=== PATIENT | female | born 1960 | race Caucasian/White ===

== ENCOUNTER 2020-06-08 16:19 | Emergency (ER) | payer BC, SELFPAY ==
[2020-06-08 17:02] VITALS: BP 116/86; PULSE 85; RESP 18; TEMP 36.7; O2SAT 99
--- NOTE | 2020-06-08 17:25 | ED.NAVMDI ---
HPI - Nausea/Vomiting/Diarrhea General Chief complaint: Nausea/Vomiting/Diarrhea Stated complaint: fatigue, nausea and fever Time Seen by Provider: 06/08/20 16:49 Source: patient and RN notes reviewed Mode of arrival: ambulatory Limitations: no limitations History of Present Illness HPI Narrative: Patient presents today with a 3-day history of nausea, vomiting, and diarrhea. She also reports some fatigue today. States her vomiting has improved, but she now has some dry heaves. She has not vomited today. States that it seems her diarrhea has been worsening. She had 10 episodes of diarrhea yesterday, but for so far today. She has been able to keep down water since yesterday, and has not been able to keep down a piece of dry toast today. Denies blood or mucus in her stool. Patient does have history of cyclic vomiting syndrome for which she takes a prescribed antiemetic as needed. Her last dose was yesterday, but states it sedates her too much and she did not take any today. MD elicited complaint: nausea, vomiting and diarrhea Related Data Home Medications Medication Instructions Recorded Confirmed aspirin [Adult Low Dose Aspirin] 81 mg PO DAILY 01/27/19 06/08/20 citalopram 20 mg PO DAILY 01/27/19 06/08/20 thyroid (pork) [[place] Thyroid] 60 mg PO DAILY 06/08/20 06/08/20 Allergies Allergy/AdvReac Type Severity Reaction Status Date / Time atorvastatin Allergy Unknown arthralgias Verified 06/08/20 17:11 Penicillins Allergy Unknown Hives Verified 06/08/20 17:11 pitavastatin [Livalo] Allergy Unknown confusion Verified 06/08/20 17:11 simvastatin Allergy Unknown Unknown Verified 06/08/20 17:11 Ozlawxw-Vby-Weo Reductase Allergy Unknown Unresponsiv Verified 06/08/20 17:11 Inhibitor e Honey Bee Allergy Mild Unknown Uncoded 06/08/20 17:11 Review of Systems Review of Systems: Narrative: CONSTITUTIONAL: Denies body aches, fever, chills, or sweats.+ Fatigue EYES: Denies visual changes, redness, or discharge. ENT: Denies rhinorrhea, congestion, sore throat, or otalgia. CARDIOVASCULAR: Denies chest pain, palpitations, or edema. RESPIRATORY: Denies cough or dyspnea. GASTROINTESTINAL: Denies abdominal pain. + Nausea, vomiting, diarrhea GENITOURINARY: Denies dysuria or hematuria. SKIN: Denies rash, itching, or wounds. MUSCULOSKELETAL: Denies back pain, joint pain, or myalgia. NEUROLOGIC: Denies headache, numbness, tingling, or weakness. PSYCH: Denies depression or anxiety. [facility] Past Medical History Medical History (Updated 06/08/20 @ 17:38 by Aminata Bowens, [facility], ) Anxiety Atherosclerosis Bilateral primary osteoarthritis of hip Cervical spondylosis Cyclic vomiting syndrome Gastroparesis GERD (gastroesophageal reflux disease) Hyperlipidemia Hypertension Hypothyroidism Major depression Migraine Surgical History Surgical History (Updated 06/08/20 @ 17:28 by Aminata Bowens, [facility], ) H/O: hysterectomy Family History Family History (System 05/12/19 @ 17:17 by Soraya Bah) Other Cerebrovascular accident Diabetes mellitus Family history of malignant neoplasm Hypertension Social History Social History (System 05/12/19 @ 17:17 by Soraya Bah) Smoking status: Never smoker Alcohol intake: current Gender identity (if verbalized by the patient): Female Comments At time of signature, I have reviewed and agree with nursing past medical, surgical, social and family history unless otherwise noted. Please see nursing chart for further information. There is no relevant family history pertinent to the presenting complaint Exam Narrative: Exam Narrative: GENERAL: Well-appearing, well-nourished, and in no acute distress. HEAD: Normocephalic, atraumatic. EYES: EOMI. No redness or drainage. Conjunctivae normal. ENT: Mucous membranes pink and moist. NECK: Normal AROM. CHEST: No respiratory distress. Clear to auscultation. HEART: Regular rate and rhythm. No murmur appreciated. Normal
== END 2020-06-08 17:21 | disposition home or self-care (01) ==
PROVIDERS: Emergency Provider Nurse Practitioner; PCP Chiropractor
DX: R11.2 Nausea with vomiting, unspecified (principal); R19.7 Diarrhea, unspecified; Z20.822 Contact with and (suspected) exposure to COVID-19; I10 Essential (primary) hypertension; E78.5 Hyperlipidemia, unspecified; E03.9 Hypothyroidism, unspecified; F32.9 Major depressive disorder, single episode, unspecified; F41.9 Anxiety disorder, unspecified; M47.812 Spondylosis without myelopathy or radiculopathy, cervical region; K31.84 Gastroparesis; I70.90 Unspecified atherosclerosis
CPT/HCPCS: 87426; 99213; C9803; G0463

== ENCOUNTER 2021-01-25 14:49 | Outpatient (CLI) | payer BC, SELFPAY | END 2021-01-25 14:50 | disposition home or self-care (01) | LOC: ANHSURGERY 14:52 | PROVIDERS: PCP Internal Medicine; Visit Provider Urology | DX: N36.42 Intrinsic sphincter deficiency (ISD) (principal) | CPT/HCPCS: 87086 ==

== ENCOUNTER 2021-01-28 00:36 | Day surgery (SDC) | payer BC, SELFPAY ==
--- NOTE | 2021-01-22 14:26 | P.HP_ITS ---
H&P: HPI History of Present Illness Date/Time: 01/22/21 14:26 LEONARD due to ISD and Urge incontinence symptoms Chief Complaint: ISD [facility] Past Medical History Medical History Anxiety Atherosclerosis Bilateral primary osteoarthritis of hip Cervical spondylosis Cholecystectomy planned Cyclic vomiting syndrome Gastroparesis GERD (gastroesophageal reflux disease) Hyperlipidemia Hypertension Hypothyroidism Major depression Migraine Psoriasis Surgical History Surgical History H/O: hysterectomy History of back surgery Family History Family History Mother Diabetes mellitus Hypertension Depression Anxiety Thyroid disorder Grandparent Hypertension Carcinoma Other Cerebrovascular accident Family history of malignant neoplasm Social History Social History Smoking status: Never smoker Alcohol intake: current Gender identity (if verbalized by the patient): Female Meds Home Medications and Allergies Home Medications Medication Instructions Recorded Confirmed Type aspirin [Adult Low Dose Aspirin] 81 mg PO DAILY 01/27/19 08/16/20 History ondansetron 8 mg PO Q4-6H PRN #20 tablet 06/08/20 08/16/20 Rx esterified estrogens 2.5 mg tablet 2.5 mg PO DAILY 08/16/20 08/16/20 History levothyroxine 100 mcg tablet 100 mcg PO DAILY #90 tablet 12/27/20 Rx citalopram 20 mg tablet 20 mg PO DAILY #30 tablet 12/29/20 Rx Allergies Allergy/AdvReac Type Severity Reaction Status Date / Time atorvastatin Allergy Unknown arthralgias Verified 06/08/20 17:11 Penicillins Allergy Unknown Hives Verified 06/08/20 17:11 pitavastatin [Livalo] Allergy Unknown confusion Verified 06/08/20 17:11 simvastatin Allergy Unknown Unknown Verified 06/08/20 17:11 Gbovckf-LFK-UjC Reductase Allergy Unknown Unresponsiv Verified 06/08/20 17:11 Inhibitor e [Jzdppoc-Hjm-Did Reductase Inhibitor] Honey Bee Allergy Mild Unknown Uncoded 06/08/20 17:11 Exam Const: General: cooperative HENMT: Head: normal to inspection Eyes: General: appearance normal, both eyes and all related structures Chest: Chest palpation & inspection: normal inspection of the chest Resp: Effort & Inspection: normal respiratory effort and able to speak in complete sentences GI: Inspection: normal to inspection Back/Spine/Pelvis: Back: no CVA tenderness Skin: General skin exam: normal color and no rashes or lesions noted Neuro: General: patient oriented x3 Assessment and Plan Assessment and plan (1) Intrinsic sphincter deficiency (ISD): Code(s): N36.42 - Intrinsic sphincter deficiency (ISD) Status: Acute Assessment and Plan: bulking agent
[2021-01-25 08:14] VITALS: BMI 26.7
[2021-01-28] MEDS: LACTATED RINGERS 1,000 ML 30 ML IV CONT (06:40)
--- NOTE | 2021-01-28 06:47 | WPDANESEPPF ---
Anes - Initial Pre Proc Eval Procedure: Operation Date: 01/28/21 07:30 Proposed Procedures p Cystoscopy with Bulking Agent Bulkamid - Sim Robison MD Date/Time: 01/28/21 06:47 Surgeon: Sim Robison MD Pre Op Diagnosis: intrinsic sphincter deficiency Patient Data Age: 60 Gender: F Height: 1.6 m Weight: 68.49 kg Allergies Allergy/AdvReac Type Severity Reaction Status Date / Time atorvastatin Allergy Unknown arthralgias Verified 01/25/21 08:12 Penicillins Allergy Unknown Hives Verified 01/25/21 08:12 pitavastatin [Livalo] Allergy Unknown confusion Verified 01/25/21 08:12 simvastatin Allergy Unknown Unknown Verified 01/25/21 08:12 Klrgyux-RJP-BpZ Reductase Allergy Unknown Unresponsiv Verified 01/25/21 08:12 Inhibitor e [Pgbvxqa-Hbv-Xtn Reductase Inhibitor] Honey Bee Allergy Mild Unknown Uncoded 01/25/21 08:12 Home Medications Medication Instructions Recorded Confirmed Type ondansetron 8 mg PO Q4-6H PRN #20 tablet 06/08/20 01/25/21 Rx esterified estrogens 2.5 mg tablet 2.5 mg PO DAILY 08/16/20 01/25/21 History levothyroxine 100 mcg tablet 100 mcg PO DAILY #90 tablet 12/27/20 01/25/21 Rx citalopram 20 mg tablet 20 mg PO DAILY #30 tablet 12/29/20 01/25/21 Rx Patient hx anesthesia problems: none Family hx anesthesia problems: none Results Review: All pre-operative results and documents have been reviewed as part of the pre-operative evaluation. [facility] Past Medical History Medical History Anxiety Atherosclerosis Bilateral primary osteoarthritis of hip Cervical spondylosis Cholecystectomy planned Cyclic vomiting syndrome Gastroparesis GERD (gastroesophageal reflux disease) Hyperlipidemia Hypertension Hypothyroidism Major depression Migraine Psoriasis Surgical History Surgical History H/O: hysterectomy History of back surgery Family History Family History Mother Diabetes mellitus Hypertension Depression Anxiety Thyroid disorder Grandparent Hypertension Carcinoma Other Cerebrovascular accident Family history of malignant neoplasm Social History Social History Smoking status: Never smoker Alcohol intake: current Alcohol use details: ONCE/MONTH Substance use: never Substance use type: does not use Living arrangements: alone Gender identity (if verbalized by the patient): Female Spiritual care concerns: No Anes - Eval Final PreProcedure Day of Procedure 01/28/21 06:47 Patient weight: overweight Heart: regular rate and rhythm Lungs: clear to auscultation Airway: Mallampati scale class II Neurological: alert and oriented Last oral intake: >/= 8 hours ASA classification: III Emergent: no Anesthetic plan: proceed Anesthesia type and monitoring: general and standard monitoring Results Review: All pre-operative results and documents have been reviewed as part of the pre-operative evaluation. Informed Consent: The patient's anesthetic plan and its attendant risks and benefits were discussed with the patient/family/POA. Questions were solicited and answers provided to the satisfaction of the patient/family/POA.
[2021-01-28 06:55] VITALS: BP 142/79; PULSE 63; RESP 18; TEMP 36.4; O2SAT 98
--- NOTE | 2021-01-28 07:18 | WPDHPUPDATE1 ---
History and Physical Update Update Date/Time: 01/28/21 07:18 History and Physical has been reviewed, including an updated exam of the patient. There are NO changes in the patient's condition. Risks, benefits, and alternatives have been discussed and questions answered. Patient agrees to proceed with procedure.
[2021-01-28] MEDS: ceFAZolin 2 GM/D5W 50 ML 2 GM/50 ML BAG IVPB (07:29)
--- NOTE | 2021-01-28 07:49 | W.PM.PROC2 ---
Procedure Note - Detailed Date of Procedure 01/28/21 Pre-op Diagnosis intrinsic sphincter deficiency Post-op Diagnosis same Procedure Performed Cystoscopy with suburethral injection of implant material [id number] Surgeon Sim Robison MD Anesthesia MAC Indications This is a patient with stress urinary incontinence due to intrinsic sphincter deficiency. They desires surgical correction. They understand the risk of bleeding, and infection, lack of efficacy, need for repeat procedures, obstructive voiding requiring catheterization. They agreed to proceed. She is not a candidate for urethral sling due to minimal urethral mobility Findings Open urethra consistent with intrinsic sphincter deficiency Description of Procedure The patient was correctly identified and informed consent was obtained. They were brought to the operating room. They were given MAC anesthesia. They were placed in the dorsal lithotomy position. They were prepped and draped in a sterile fashion. A time-out performed. Cystoscopy revealed no tumors in the bladder and an open urethra consistent with intrinsic sphincter deficiency. She had very scarred urethral tissues. They were not very vascular. I injected the bulking agent circumferentially around the urethra creating pillows to collapse the urethra There was good bulking effect. They were awakened and transferred to the PACU in stable condition. Implants Urethral bulking agent Estimated Blood Loss 1 Drains No Packing No Pathology none sent Complications No immediate complications Condition stable Disposition PACU
[2021-01-28 07:54] VITALS: BP 90/48; PULSE 63; RESP 12; O2SAT 95
[2021-01-28 08:10] VITALS: BP 107/54; PULSE 61; RESP 12; O2SAT 97
[2021-01-28 08:40] VITALS: BP 126/72; PULSE 57; RESP 12
== END 2021-01-28 08:57 | disposition home or self-care (01) ==
PROVIDERS: PCP Internal Medicine; Visit Provider Urology
PROC: 3E0K8GC Introduction of Other Therapeutic Substance into Genitourinary Tract, Via Natural or Artificial Opening Endoscopic (ICD-10-PCS; CPT 51715; principal; 2021-01-28 07:30)
DX: N36.42 Intrinsic sphincter deficiency (ISD) (principal); N39.3 Stress incontinence (female) (male); N36.8 Other specified disorders of urethra; F41.9 Anxiety disorder, unspecified; M47.812 Spondylosis without myelopathy or radiculopathy, cervical region; R11.15 Cyclical vomiting syndrome unrelated to migraine; K21.9 Gastro-esophageal reflux disease without esophagitis; E78.5 Hyperlipidemia, unspecified; I10 Essential (primary) hypertension; E03.9 Hypothyroidism, unspecified; F32.9 Major depressive disorder, single episode, unspecified; L40.9 Psoriasis, unspecified; Z79.82 Long term (current) use of aspirin
CPT/HCPCS: 51715; A9270; J0690; J2250; J2704; J3010; J7120

== ENCOUNTER 2021-03-15 14:25 | Outpatient (CLI) | payer BC, SELFPAY ==
--- NOTE | ~2021-03-15 | XR_ITS ---
EXAMINATION: XR knee LT 3V DATE: 03/15/2021 14:49 INDICATION: Left knee pain. TECHNIQUE: 3 views of left knee were obtained. COMPARISON: None. FINDINGS: Bone alignment is normal. No fracture. There is moderate osteoarthritis of medial compartme nt and mild osteoarthritis of lateral and patellofemoral compartments. No knee joint effusion. IMPRESSION: 1. Moderate left knee osteoarthritis. Reviewed, dictated and finalized at location A. IGN [employer]CAST SPECIALIST
--- NOTE | ~2021-03-15 | XR_ITS ---
EXAMINATION: XR knee RT 3V DATE: 03/15/2021 14:49 INDICATION: Right knee pain. TECHNIQUE: 3 views of right knee were obtained. COMPARISON: None. FINDINGS: Bone alignment is normal. No fracture. There is mild osteoarthritis of medial and patellofe moral compartments. No knee joint effusion. IMPRESSION: 1. Mild right knee osteoarthritis. Reviewed, dictated and finalized at location A. BRUSH FILLER
== END 2021-03-15 14:26 | disposition home or self-care (01) ==
LOC: ANHIMG 14:32
PROVIDERS: PCP Internal Medicine; Visit Provider Nurse Practitioner
DX: M25.561 Pain in right knee (principal); M25.562 Pain in left knee; M17.0 Bilateral primary osteoarthritis of knee
CPT/HCPCS: 73562

== ENCOUNTER 2021-07-20 19:31 | Emergency (ER) | payer BC, SELFPAY ==
--- NOTE | 2021-07-20 19:36 | ED.URI ---
HPI - URI/Sore Throat General Chief Complaint: Upper Respiratory Infection Stated Complaint: sore throat cough fever congestion Time Seen by Provider: 07/20/21 19:38 Source: patient and RN notes reviewed Mode of arrival: ambulatory Limitations: no limitations History of Present Illness HPI Narrative: 61-year-old female presents with concern for 1 week history of cough, nasal congestion, nasal drainage and sinus pain. Reports chest congestion and chest tightness with coughing. She reports she has been taking jkac-koq-tvrlmbr medication without relief. Reports her symptoms worsened today and she developed a fever. MD elicited complaint: cough and nasal congestion Related Data Home Medications Medication Instructions Recorded Confirmed esterified estrogens 2.5 mg tablet 2.5 mg PO DAILY 08/16/20 07/20/21 Allergies Allergy/AdvReac Type Severity Reaction Status Date / Time atorvastatin Allergy Unknown arthralgias Verified 07/20/21 19:33 Penicillins Allergy Unknown Hives Verified 07/20/21 19:33 pitavastatin [Livalo] Allergy Unknown confusion Verified 07/20/21 19:33 simvastatin Allergy Unknown Unknown Verified 07/20/21 19:33 Outabop-MBV-FpT Reductase Allergy Unknown Unresponsiv Verified 07/20/21 19:33 Inhibitor e [Frokkiv-Brw-Fcz Reductase Inhibitor] Honey Bee Allergy Mild Unknown Uncoded 07/20/21 19:33 Review of Systems Review of Systems: CONSTITUTIONAL: Reports malaise, fever. EYES: Denies visual changes, redness, or discharge. ENT: Reports rhinorrhea, congestion, sinus pain, otalgia and sore throat. CARDIOVASCULAR: Denies chest pain, palpitations, or edema. RESPIRATORY: Reports cough. Denies dyspnea. GASTROINTESTINAL: Denies abdominal pain, nausea, vomiting, diarrhea SKIN: Denies rash or itching. MUSCULOSKELETAL: Reports myalgia. NEUROLOGIC: Denies headache. All systems reviewed & are unremarkable except as noted in HPI and below PMFSH Past Medical History Medical History (Updated 07/20/21 @ 19:46 by Stacey Morales NP) Age related osteoporosis Anxiety Atherosclerosis Bilateral primary osteoarthritis of hip Cervical spondylosis Cholecystectomy planned Cyclic vomiting syndrome Gastroparesis GERD (gastroesophageal reflux disease) Hyperlipidemia Hypertension Hypothyroidism Major depression Migraine Psoriasis Surgical History Surgical History H/O: hysterectomy History of back surgery Family History Family History Mother Diabetes mellitus Hypertension Depression Anxiety Thyroid disorder Grandparent Hypertension Carcinoma Other Cerebrovascular accident Family history of malignant neoplasm Social History Social History Smoking status: Never smoker Alcohol intake: current Alcohol use details: ONCE/MONTH Substance use: never Substance use type: does not use Gender identity (if verbalized by the patient): Female Spiritual care concerns: No Comments At time of signature, agree with nursing past medical, surgical, social and family history. There is no relevant family history pertinent to the presenting complaint Exam Narrative: GENERAL: Nontoxic-appearing and in no acute distress. HEAD: Normocephalic EYES: PERRLA, conjunctivae clear ENT: Nares clear, turbinates edematous and erythematous, sinus tenderness. Mucous membranes moist. TM pearly gaines with dull light reflex bilaterally; no tragal tenderness. Oropharynx not erythematous without lesions. Tonsils not enlarged and without exudate, no drooling, no hoarseness, no trismus, uvula midline. NECK: Supple. No lymphadenopathy CHEST: Clear to auscultation, breath sounds equal. No wheezing, rhonchi, rales, or stridor. No respiratory distress, speaks in full sentences. HEART: Regular rate and rhythm. No murmur heard. SKIN: Warm, dry, no rash. NEURO: Apple
[2021-07-20 19:37] VITALS: BP 155/83; PULSE 90; RESP 20; TEMP 38.2; O2SAT 97
== END 2021-07-20 19:50 | disposition home or self-care (01) ==
PROVIDERS: Emergency Provider Nurse Practitioner; PCP Internal Medicine
DX: J32.9 Chronic sinusitis, unspecified (principal); J40 Bronchitis, not specified as acute or chronic; M81.0 Age-related osteoporosis without current pathological fracture; I70.90 Unspecified atherosclerosis; M16.0 Bilateral primary osteoarthritis of hip; M47.812 Spondylosis without myelopathy or radiculopathy, cervical region; K31.84 Gastroparesis; K21.9 Gastro-esophageal reflux disease without esophagitis; E78.5 Hyperlipidemia, unspecified; I10 Essential (primary) hypertension; E03.9 Hypothyroidism, unspecified; L40.9 Psoriasis, unspecified; F41.9 Anxiety disorder, unspecified; F32.A Depression, unspecified
CPT/HCPCS: 99213; G0463

== ENCOUNTER 2021-08-27 14:32 | Emergency (ER) | payer BC, SELFPAY ==
--- NOTE | ~2021-08-27 | XR_ITS ---
EXAM: XR thoracic spine 3V DATE: 08/27/2021 16:18 HISTORY: KNI. MID-BACK PAIN X 3 WKS. PAIN GETTING WORSE. . COMPARISON: None available. FINDINGS: Vertebral body alignment intact. Mild thoracic scoliosis. Vertebral body heights preserved . Multilevel disc narrowing and marginal osteophytosis. No traumatic malalignment or fracture. Visual ized lung parenchyma is clear. Cholecystectomy clips. IMPRESSION: No acute fracture or traumatic malalignment detected in the thoracic spine. Reviewed, dictated and finalized at location K. IMPRESSION: No acute fracture or traumatic malalignment detected in the thoraci c spine.
[2021-08-27 14:36] VITALS: BP 152/64; PULSE 65; RESP 20; TEMP 36.7; O2SAT 98
--- NOTE | 2021-08-27 14:44 | ED.BACK ---
HPI - Back Pain/Injury General Chief Complaint: Back Pain/Injury Stated Complaint: Back pain Time Seen by Provider: 08/27/21 15:43 Source: patient and RN notes reviewed Mode of arrival: ambulatory Limitations: no limitations History of Present Illness HPI Narrative: 61-year-old female presents with concern for mid line thoracic back pain. She reports pain started at her bra line approximately 3 weeks ago. Reports is progressively gotten worse. Reports she has been to the chiropractor twice and been adjusted without relief. She reports intermittent unprovoked sharp pain. She reports the pain occasionally radiates to her right upper quadrant. She reports a history of biliary stenosis with stent placement. She reports history of gastroparesis, cholecystectomy and appendectomy. She also has a history of a cyst on her lumbar spine which she had removed surgically. She reports her gastroparesis is generally controlled with diet. She reports over the last several days she has noticed that the achiness increases after she eats. MD elicited complaint: back pain Related Data Allergies Allergy/AdvReac Type Severity Reaction Status Date / Time atorvastatin Allergy Unknown arthralgias Verified 08/27/21 14:52 Penicillins Allergy Unknown Hives Verified 08/27/21 14:52 pitavastatin [Livalo] Allergy Unknown confusion Verified 08/27/21 14:52 simvastatin Allergy Unknown Unknown Verified 08/27/21 14:52 Jgkzmbj-DTU-ZeX Reductase Allergy Unknown Unresponsiv Verified 08/27/21 14:52 Inhibitor e [Rvezjja-Hqm-Zrk Reductase Inhibitor] Honey Bee Allergy Mild Unknown Uncoded 07/20/21 19:33 Review of Systems Review of Systems: CONSTITUTIONAL: Denies malaise, chills, sweats, or fever. CARDIOVASCULAR: Denies chest pain, palpitations, or edema. RESPIRATORY: Denies cough or dyspnea. GASTROINTESTINAL: Reports back pain that radiates to the right upper quadrant of the abdomen. Denies nausea, vomiting, diarrhea, loss of bowel function GENITOURINARY: Denies dysuria, hematuria, frequency, loss of bladder function. SKIN: Denies rash or itching. MUSCULOSKELETAL: Reports midline thoracic back pain NEUROLOGIC: Denies numbness, weakness, or headache. All systems reviewed & are unremarkable except as noted in HPI and below PMFSH Past Medical History Medical History (Updated 08/27/21 @ 16:28 by Stacey Morales NP) Age related osteoporosis Anxiety Atherosclerosis Bilateral primary osteoarthritis of hip Cervical spondylosis Cholecystectomy planned Cyclic vomiting syndrome Gastroparesis GERD (gastroesophageal reflux disease) Hyperlipidemia Hypertension Hypothyroidism Major depression Migraine Psoriasis Surgical History Surgical History H/O: hysterectomy History of back surgery Family History Family History Mother Diabetes mellitus Hypertension Depression Anxiety Thyroid disorder Grandparent Hypertension Carcinoma Other Cerebrovascular accident Family history of malignant neoplasm Social History Social History Smoking status: Never smoker Alcohol intake: current Alcohol use details: ONCE/MONTH Substance use: never Substance use type: does not use Gender identity (if verbalized by the patient): Female Spiritual care concerns: No Comments At time of signature, agree with nursing past medical, surgical, social and family history. There is no relevant family history pertinent to the presenting complaint Exam Narrative: GENERAL: Well-appearing, well-nourished, and in no acute distress. HEAD: Normocephalic, atraumatic. EYES: PERRLA and EOMI. NECK: Supple. No lymphadenopathy. CHEST: Clear to auscultation. No respiratory distress. HEART: Regular rate and rhythm. Distal pulses palpable and equal, cap refill <3 seconds ABDOMEN: Soft, nontender,
[2021-08-27] MEDS: KETOROLAC (*BKC) 60 MG/2 ML VIAL IM (16:21)
--- NOTE | 2021-08-27 16:32 | ECG_ITS ---
Measurements Intervals [place] Rate: 57 P: 60 MS: 132 QRS: 67 QRSD: 96 T: 57 QT: 412 QTc: 403 Interpretive Statements SINUS RHYTHM NO PREVIOUS ECG AVAILABLE FOR COMPARISON Electronically Signed On 08-28-2021 19:17:04 CDT by Aleshia Frausto M.D.
== END 2021-08-27 16:48 | disposition home or self-care (01) ==
PROVIDERS: Emergency Provider Nurse Practitioner; PCP Internal Medicine
DX: M54.6 Pain in thoracic spine (principal); E03.9 Hypothyroidism, unspecified; I10 Essential (primary) hypertension; K21.9 Gastro-esophageal reflux disease without esophagitis; K31.84 Gastroparesis; M47.812 Spondylosis without myelopathy or radiculopathy, cervical region; M16.0 Bilateral primary osteoarthritis of hip; I70.90 Unspecified atherosclerosis; M81.0 Age-related osteoporosis without current pathological fracture; F41.9 Anxiety disorder, unspecified; F32.9 Major depressive disorder, single episode, unspecified
CPT/HCPCS: 72072; 93005; 96372; 99213; G0463; J1885

== ENCOUNTER 2021-08-31 14:41 | Emergency (ER) | payer BC, SELFPAY ==
--- NOTE | ~2021-08-31 | CT_ITS ---
EXAMINATION: CT thoracic spine wo con DATE: 08/31/2021 15:51 INDICATION: back pain . TECHNIQUE: Computed tomography (CT) of the thoracic spine was performed without intravenous contrast. Automated exposure control and iterative reconstruction technique were employed. The dose-length pro duct was 677.59 mGy-cm. COMPARISON: 08/27/2021. FINDINGS: Mild scoliosis. Slightly exaggerated thoracic kyphosis. Multilevel degenerative disc diseas e and marginal osteophyte formation. Facets are aligned. Posterior elements are intact. No fracture o r dislocation. No lytic or blastic lesion. Minimal aortic arch and coronary artery calcification. Cho lecystectomy clips. Pneumobilia. IMPRESSION: 1. No acute fracture or traumatic malalignment in the thoracic spine. 2. Pneumobilia, most commonly seen following biliary instrumentation or secondary to an incompetent s phincter of Oddi, but may also occur with biliary-enteric fistula, and rarely from infection. Reviewed, dictated and finalized at location K. IMPRESSION: 1. No acute fracture or traumatic malalignment in the thoracic spine. 2. Pneumobilia, most commonly seen following biliary instrumentation or seconda ry to an incompetent sphincter of Oddi, but may also occur with biliary-enteric fistula, and rarely from infection.
--- NOTE | ~2021-08-31 | CT_ITS ---
EXAMINATION: CT cervical spine wo con DATE: 08/31/2021 15:50 INDICATION: back pain TECHNIQUE: Computed tomography (CT) of the cervical spine was performed without intravenous contrast. Automated exposure control and iterative reconstruction technique were employed. The dose-length pro duct was 386.40 mGy-cm. COMPARISON: None FINDINGS: Counting reference: Craniocervical junction. There are seven cervical type vertebral bodies. Anatomic Variants: None. Vertebral Body Alignment: Cervical spine straightening as can be seen with positioning or spasm, oth erwise intact. Craniocervical junction: Moderate degenerative change. Alignment intact. Osseous structures/fracture: No evidence of a lytic or blastic process in the visualized spine. N o evidence of acute fracture. Cervical soft tissues: The paraspinal soft tissues planes are maintained. Degenerative changes: Multilevel moderate degenerative disc disease. Multilevel mild and moderate fac et arthropathy. Multilevel bilateral severe neural foraminal narrowing. No severe central canal narro wing. IMPRESSION: No acute fracture or traumatic malalignment in the cervical spine. Reviewed, dictated and finalized at location K.
[2021-08-31 14:43] VITALS: BP 185/85; PULSE 66; RESP 20; TEMP 36.8; O2SAT 100
[2021-08-31 15:30] VITALS: BP 156/73; PULSE 66; RESP 16; TEMP 36.4; O2SAT 98
--- NOTE | 2021-08-31 15:42 | ED.BACK ---
HPI - Back Pain/Injury General Chief Complaint: Back Pain/Injury Stated Complaint: back pain Time Seen by Provider: 08/31/21 15:00 History of Present Illness HPI Narrative: 61-year-old female presents the emergency room with ongoing midthoracic back pain. Patient states that the pain has been present for about 3 weeks and occasionally radiates into her neck and then into her lower back. Patient denies any injury or trauma. Patient denies fever. Patient states that she was seen at urgent care over the weekend and was started on steroids and muscle relaxers. Patient states that she has received no relief of symptoms from the treatment. Patient was seen at her PCPs office on Sunday and was told to continue with the treatment started from the urgent care. Patient states that today she lost control of her bladder. Patient denies any lower extremity weakness, neuro deficits or saddle anesthesia. Related Data Allergies Allergy/AdvReac Type Severity Reaction Status Date / Time atorvastatin Allergy Unknown arthralgias Verified 08/30/21 13:19 Penicillins Allergy Unknown Hives Verified 08/30/21 13:19 pitavastatin [Livalo] Allergy Unknown confusion Verified 08/30/21 13:19 simvastatin Allergy Unknown Unknown Verified 08/30/21 13:19 Vudcvhw-BON-VrW Reductase Allergy Unknown Unresponsiv Verified 08/30/21 13:19 Inhibitor e [Fcntigb-Qty-Kjg Reductase Inhibitor] Honey Bee Allergy Mild Unknown Uncoded 07/20/21 19:33 Review of Systems Review of Systems: CONSTITUTIONAL: Denies fever, chills, or sweats. EYES: Denies visual changes, redness, or discharge. ENT: Denies rhinorrhea, congestion, sore throat, or otalgia. CARDIOVASCULAR: Denies chest pain, palpitations, or edema. RESPIRATORY: Denies cough or dyspnea. GASTROINTESTINAL: Denies abdominal pain, nausea, vomiting, or diarrhea. GENITOURINARY: Denies dysuria or hematuria. SKIN: Denies rash or itching. MUSCULOSKELETAL: Reports midthoracic back pain NEUROLOGIC: Denies headache, numbness, dizziness, or weakness. PSYCHIATRIC: Denies anxiety or depression. [facility] Past Medical History Medical History Age related osteoporosis Anxiety Atherosclerosis Bilateral primary osteoarthritis of hip Cervical spondylosis Cholecystectomy planned Cyclic vomiting syndrome Gastroparesis GERD (gastroesophageal reflux disease) Hyperlipidemia Hypertension Hypothyroidism Major depression Migraine Psoriasis Surgical History Surgical History H/O: hysterectomy History of back surgery Family History Family History Mother Diabetes mellitus Hypertension Depression Anxiety Thyroid disorder Grandparent Hypertension Carcinoma Other Cerebrovascular accident Family history of malignant neoplasm Social History Social History Smoking status: Never smoker Alcohol intake: current Alcohol use details: ONCE/MONTH Substance use: never Substance use type: does not use Gender identity (if verbalized by the patient): Female Spiritual care concerns: No Exam Narrative: GENERAL: Well-appearing, well-nourished, and in no acute distress. HEAD: Normocephalic, atraumatic. EYES: PERRLA and EOMI. ENT: Nares clear, no rhinorrhea or epistaxis. Mucous membranes moist. Oropharynx without tonsillar hypertrophy exudate or other lesions. Bilateral TMs pearly gaines nonbulging NECK: Supple. No adenopathy or masses. No carotid bruits or JVD CHEST: Clear to auscultation. No respiratory distress. No wheezes rales or rhonchi HEART: Regular rate and rhythm. No murmur heard. Normal peripheral pulses. ABDOMEN: Soft, right upper quadrant tenderness, nondistended, normal active bowel sounds. EXTREMITIES: Normal range of motion. No edema. BACK: Mid thoracic midline tenderness, no bon
--- NOTE | 2021-08-31 16:19 | PC.NURSE ---
pt ambulated to bathroom, gait steady pt reports pain
--- NOTE | 2021-08-31 16:24 | PC.NURSE ---
pt just informed ERP back pain is radiating into RUQ
[2021-08-31 16:30] VITALS: BP 154/78; PULSE 62; RESP 16; TEMP 36.4
[2021-08-31] MEDS: fentaNYL CITRATE INJ (*CRX) 100 MCG/2 ML VIAL 50 MCG IV PUSH (17:01)
[2021-08-31] MEDS: SODIUM CHLORIDE 0.9% IV 1,000 ML 999 ML IV CONT (17:02)
[2021-08-31 17:09] LABS: Basophils Percent Auto 0.1 % (0.2-1.2); Hematocrit 40.2 % (37.0-47.0); Hemoglobin 13.4 g/dL (12.0-15.0); Lymphocytes Absolute Auto 1.07 K/mm3 (0.9-3.2); Lymphocytes Percent Auto 10.3 % (18.3-44.2); Mean Corpuscular HGB Conc 33.3 g/dl (32-36); Mean Corpuscular Hemoglobin 29.3 pg (26-34); Mean Platelet Volume 12.6 fl (7.4-10.4); Monocytes Absolute Auto 0.2 K/mm3 (0.1-0.6); Monocytes Percent Auto 1.5 % (2.6-8.5); Neutrophils Absolute Auto 9.1 K/mm3 (1.3-6.7); Neutrophils Percent Auto 87.1 % (45.5-73.1); Platelet Count Result 193 k/mm3 (150-375); Red Blood Count 4.57 M/mm3 (4.2-5.4); Red Cell Distribution Width 13.9 % (11.5-14.5); White Blood Count 10.4 K/mm3 (4.5-10.0)
[2021-08-31 17:16] LABS: Alanine Aminotransferase 20 U/L (6-35); Albumin Level 4.7 g/dL (3.5-5.1); Alkaline Phosphatase 89 U/L (38-126); Anion Gap 7 mmol/L (8-16); Aspartate Amino Transferase 25 U/L (14-36); Bilirubin,Total 0.5 mg/dL (0.2-1.3); Blood Urea Nitrogen 21 mg/dL (7-17); Calcium 9.4 mg/dL (8.4-10.2); Carbon Dioxide 30 mmol/L (22-30); Chloride 102 mmol/L (98-107); Estimated CRCL calculation 67 ml/min; Estimated Glomerular Filt Rate > 60; Glucose 130 mg/dL (65-110); Lipase 60 U/L (23-300); Potassium 4.1 mmol/L (3.4-5.0); Sodium 139 mmol/L (137-145)
[2021-08-31 17:40] VITALS: BP 154/70; PULSE 61; RESP 16; TEMP 36.3; O2SAT 98
[2021-08-31 17:56] LABS: Appearance Urine Clear (Clear); Bilirubin Urine Negative (Negative); Color Urine Yellow (Yellow); Glucose Urine UA Negative (Negative); Ketones Urine Negative (Negative); Leukocyte Esterase Ur Negative LEU/UL (Negative); Nitrate Urine Negative (Negative); Protein Urine Negative (Negative); Urobilinogen Urine 0.2 mg/dL (<2.0); pH Urine 7.5 (5.0-9.0)
[2021-08-31 18:01] LABS: Add Urine Microscopic? YES; Blood Urine Trace-Intact (Negative)
[2021-08-31 18:02] LABS: RBC Urine 0-2 /hpf (0-2); Squamous Epithelial Cell Urine Rare /hpf (Few); WBC Urine 0-3 /hpf
[2021-08-31 18:30] VITALS: BP 140/68; PULSE 64; RESP 18; TEMP 36.8; O2SAT 98
== END 2021-08-31 18:58 | disposition home or self-care (01) ==
PROVIDERS: Emergency Provider Nurse Practitioner Family; PCP Internal Medicine
DX: M54.6 Pain in thoracic spine (principal); E78.5 Hyperlipidemia, unspecified; I10 Essential (primary) hypertension; E03.9 Hypothyroidism, unspecified; K21.9 Gastro-esophageal reflux disease without esophagitis; K31.84 Gastroparesis; M81.0 Age-related osteoporosis without current pathological fracture; M16.0 Bilateral primary osteoarthritis of hip; F41.9 Anxiety disorder, unspecified; F32.9 Major depressive disorder, single episode, unspecified; R93.2 Abnormal findings on diagnostic imaging of liver and biliary tract
CPT/HCPCS: 36415; 72125; 72128; 80053; 81001; 81025; 83690; 85025; 96361; 96374; 99284; J3010; J7030

== ENCOUNTER → 2021-09-13 08:35 | Outpatient (CLI) | payer BC, SELFPAY ==
--- NOTE | ~2021-09-13 | MR_ITS ---
EXAMINATION: MR thoracic spine wo con DATE: 09/13/2021 09:42 INDICATION: TECHNIQUE: Magnetic resonance imaging (MRI) of the thoracic spine was performed without intravenous c ontrast. Sagittal localizer T1-weighted FSE of the cervical spine was obtained. Thoracic spine sequen cliff included sagittal T2-weighted FSE, sagittal T1-weighted FSE, sagittal T2-weighted FS FSE, and axi al T2-weighted FSE. COMPARISON: X-ray thoracic spine 08/27/2021. CT thoracic spine 08/31/2021. FINDINGS: Mild scoliosis. Slightly exaggerated thoracic kyphosis. Vertebral body heights are aligned. Multilevel disc dehydration and mild height loss. Multilevel anterior bridging osteophytes. 3 mm jhoana tral T4-5 and left paracentral T9-10 disc protrusions. Mild diffuse disc bulges and moderate disc spa ce narrowing at T10-11 and T11-12, causing mild central canal stenosis at both levels. Vertebral body heights are intact. Normal facets. The cord is normal in signal and caliber. Conus terminates at L1- 2. IMPRESSION: 1. Minimal central disc protrusions at T4-5 and T9-T10. 2. Moderate degenerative disc change and mild central canal stenosis at T10-11 and T11-12. 3. No significant neural foraminal or central canal narrowing. Reviewed, dictated and finalized at location K.
== END ==
PROVIDERS: PCP Internal Medicine; Visit Provider Nurse Practitioner
DX: R32 Unspecified urinary incontinence (principal); M41.9 Scoliosis, unspecified; M47.814 Spondylosis without myelopathy or radiculopathy, thoracic region; M48.04 Spinal stenosis, thoracic region; M51.24 Other intervertebral disc displacement, thoracic region
CPT/HCPCS: 72146

== ENCOUNTER → 2021-09-28 11:40 | Outpatient (CLI) | payer BC, SELFPAY ==
--- NOTE | ~2021-09-28 | MM_ITS ---
EXAMINATION: MM screening [facility] BI w addie HISTORY: Screening TECHNIQUE: Craniocaudal and mediolateral oblique 3-D tomosynthesis images were obtained and synthetic 2-D images were generated. CAD analysis was submitted and interpreted. COMPARISON: Comparison to multiple prior studies sequentially, with oldest reviewed study dated 06/18. BREAST PARENCHYMAL COMPOSITION: There are scattered areas of fibroglandular density. FINDINGS: There is no evidence of suspicious mass, calcification, or architectural distortion to sugg est malignancy in either breast. There has been no suspicious interval change. IMPRESSION: 1. No mammographic evidence of malignancy. 2. Recommend routine screening mammography in one year. BI-RADS Category 1: Negative Reviewed, dictated and finalized at location A.
--- NOTE | ~2021-09-28 | DEXA_ITS ---
Bone Density Report Name: HAN PAREKH Age: 61 Sex: Female Ethnicity: White Date of : 1960 Indication: postmenopausal; screening for osteoporosis; parental hip fracture; hysterectomy; Referring Provider: Sun Yoo Study: Bone densitometry was performed. Exam Date: September 28, 2021 Accession number: [id number] Bone Density: Region BMD T-score Z-score Classification AP Spine (L1-L4) 1.096 0.4 2.1 Normal Femoral Neck (Left) 0.723 -1.1 0.3 Osteopenia Total Hip (Left) 0.906 -0.3 0.9 Normal Femoral Neck (Right) 0.712 -1.2 0.2 Osteopenia Total Hip (Right) 0.858 -0.7 0.5 Normal Total Hip Mean 0.882 -0.5 0.7 Normal World Health Organization criteria for BMD impression classify patients as: Normal (T-score at or above -1.0), Osteopenia (T-score between -1.0 and -2.5), or Osteoporosis (T-score at or below -2.5). 10-year Fracture Risk(1): Major Osteoporotic Fracture 16% Hip Fracture 0.7% Reported Risk Factors: [place] (), Neck BMD=0.712, BMI=27.6, parental fracture (1) FRAX(R) Version 3.08. Fracture probability calculated for an untreated patient. Fracture probability may be lower if the patient has received treatment. Previous Exams: Region Exam Age BMD T-score BMD Change BMD Change Date g/cm2 vs Baseline vs Previous AP Spine(L1-L4) 09/28/2021 61 1.096 0.4 0.099* -0.028* 11/01/2018 58 1.124 0.7 0.128* 0.056* 06/12/2011 51 1.069 0.2 0.072* 0.008 02/10/2009 48 1.061 0.1 0.064* 0.064* 02/27/2007 47 0.997 -0.5 Total Hip(Left) 09/28/2021 61 0.906 -0.3 0.046* -0.056* 11/01/2018 58 0.962 0.2 0.102* 0.054* 06/12/2011 51 0.908 -0.3 0.048* -0.023 02/10/2009 48 0.931 -0.1 0.071* 0.071* 02/27/2007 47 0.860 -0.7 Total Hip(Right) 09/28/2021 61 0.858 -0.7 -0.019 -0.011 11/01/2018 58 0.869 -0.6 -0.008 -0.013 06/12/2011 51 0.882 -0.5 0.005 -0.015 02/10/2009 48 0.897 -0.4 0.020 0.020 02/27/2007 47 0.877 -0.5 *Denotes significance at 95% confidence level, LSC for AP Spine = 0.022 g/cm2, LSC for Total Hip = 0.027 g/cm2 Clinical Information Provided by Patient: Parent has had a hip fracture Has the following medical conditions: Hysterectomy Patient maximum height was 63.0 Menopause Age: 29 Drinks caffei
== END ==
PROVIDERS: PCP Internal Medicine; Visit Provider Nurse Practitioner
DX: Z12.31 Encounter for screening mammogram for malignant neoplasm of breast (principal); Z78.0 Asymptomatic menopausal state; M85.851 Other specified disorders of bone density and structure, right thigh
CPT/HCPCS: 77063; 77067; 77080

== ENCOUNTER 2022-01-07 12:28 | Emergency (ER) | payer BC, SELFPAY ==
--- NOTE | 2022-01-07 13:03 | PC.NURSE ---
1252 Pt to reg desk and told reg she was leaving to get in quicker somewhere else.
== END 2022-01-07 12:52 | disposition left against medical advice (07) ==
PROVIDERS: Emergency Provider Nurse Practitioner; PCP Internal Medicine
DX: Z53.21 Procedure and treatment not carried out due to patient leaving prior to being seen by health care provider (principal)
CPT/HCPCS: 99199

== ENCOUNTER 2022-04-05 13:34 | Outpatient (CLI) | payer BC, SELFPAY ==
[2022-04-05 18:07] LABS: Alanine Aminotransferase 42 U/L (6-35); Albumin Level 4.3 g/dL (3.5-5.1); Alkaline Phosphatase 95 U/L (38-126); Anion Gap 6 mmol/L (8-16); Aspartate Amino Transferase 44 U/L (14-36); Bilirubin,Total 0.5 mg/dL (0.2-1.3); Blood Urea Nitrogen 16 mg/dL (7-17); Carbon Dioxide 31 mmol/L (22-30); Chloride 103 mmol/L (98-107); Cholesterol 217 mg/dL (0-200); Estimated Glomerular Filt Rate > 60; Glucose 84 mg/dL (65-110); HDL Direct 39 mg/dL; Potassium 4.2 mmol/L (3.4-5.0); Sodium 140 mmol/L (137-145); Triglycerides 98 mg/dL (<150)
[2022-04-05 18:18] LABS: LDL Cholesterol Direct 136 mg/dL
[2022-04-05 18:36] LABS: Thyroid Stimulating Hormone < 0.015 uIU/mL (0.465-4.680)
[2022-04-05 19:38] LABS: Vitamin D 25 Hydroxy 33.5 ng/mL
[2022-04-06 16:47] LABS: Iron 79 ug/dL (37-170)
[2022-04-06 16:55] LABS: Percent Iron Saturation 21 % (20-50)
== END 2022-04-05 13:35 | disposition home or self-care (01) ==
LOC: ANHGOSHLAB 13:35
PROVIDERS: PCP Internal Medicine; Visit Provider Nurse Practitioner
DX: E55.9 Vitamin D deficiency, unspecified (principal); E03.9 Hypothyroidism, unspecified; Z13.29 Encounter for screening for other suspected endocrine disorder; Z13.220 Encounter for screening for lipoid disorders
CPT/HCPCS: 36415; 80053; 80061; 82306; 83540; 83550; 83735; 84443

== ENCOUNTER 2022-05-10 00:07 | Day surgery (SDC) | payer BC, SELFPAY ==
[2022-04-25 14:23] VITALS: BMI 28.6
[2022-05-10 07:46] VITALS: BP 145/69; PULSE 65; RESP 16; TEMP 36.5; O2SAT 98
[2022-05-10] MEDS: LACTATED RINGERS 1,000 ML 150 ML IV CONT (07:55)
--- NOTE | 2022-05-10 08:39 | WPDANESEPPF ---
Anes - Initial Pre Proc Eval Procedure: Operation Date: 05/10/22 09:00 Proposed Procedures p Esophagogastroduodenoscopy - Phu Newton MD Date/Time: 05/10/22 08:39 Surgeon: Phu Newton MD Pre Op Diagnosis: GERD Patient Data Age: 62 Gender: F Height: 1.57 m Weight: 74.2 kg Last Vital Signs Temp 97.7 F 05/10/22 07:46 Pulse 65 05/10/22 07:46 Resp 16 05/10/22 07:46 BP 145/69 H 05/10/22 07:46 Pulse Ox 98 05/10/22 07:46 O2 Del Method Room Air 05/10/22 07:46 Allergies Allergy/AdvReac Type Severity Reaction Status Date / Time atorvastatin Allergy Unknown arthralgias Verified 05/10/22 07:44 Penicillins Allergy Unknown Hives Verified 05/10/22 07:44 pitavastatin [Livalo] Allergy Unknown confusion Verified 05/10/22 07:44 simvastatin Allergy Unknown Unknown Verified 05/10/22 07:44 Achplsh-EJA-QtO Reductase Allergy Unknown Unresponsiv Verified 05/10/22 07:44 Inhibitor e [Vwtvcsk-Vie-Uns Reductase Inhibitor] Honey Bee Allergy Mild Unknown Uncoded 05/10/22 07:44 Home Medications Medication Instructions Recorded Confirmed Type risankizumab-rzaa 150 mg/mL See Rx Instructions .Route .COMPLEX 02/27/22 05/10/22 History subcutaneous pen injector (Skyrizi) ascorbate calcium (vitamin C) 500 500 mg PO DAILY 04/05/22 05/10/22 History mg tablet cholecalciferol (vitamin D3) 25 25 mcg PO DAILY 04/05/22 05/10/22 History mcg (1,000 unit) capsule naproxen sodium 220 mg tablet 220 mg PO BID PRN Pain 04/05/22 05/10/22 History (Aleve) levothyroxine 75 mcg tablet 75 mcg PO DAILY #30 tabs 04/07/22 05/10/22 Rx citalopram 20 mg tablet 20 mg PO DAILY #90 tabs 05/08/22 05/10/22 Rx Patient hx anesthesia problems: none Family hx anesthesia problems: none Results Review: All pre-operative results and documents have been reviewed as part of the pre-operative evaluation. [facility] Past Medical History Medical History Age related osteoporosis Anxiety Atherosclerosis Bilateral primary osteoarthritis of hip Cervical spondylosis Cholecystectomy planned Cyclic vomiting syndrome Gastroparesis GERD (gastroesophageal reflux disease) Hyperlipidemia Hypertension Hypothyroidism Major depression Migraine Psoriasis Surgical History Surgical History H/O: hysterectomy History of back surgery Family History Family History (Updated 04/05/22 @ 13:15 by Carmelita Bartholomew [facility]) Mother Diabetes mellitus Hypertension Depression Anxiety Thyroid disorder Restless leg syndrome Grandparent Hypertension Carcinoma Other Cerebrovascular accident Family history of malignant neoplasm Social History Social History Smoking status: Never smoker Alcohol intake: never Alcohol use details: ONCE/MONTH Substance use: never Substance use type: does not use Lack of Transportation: No Lack of Food: Never True Current Housing: I Have Housing Concerned About Future Housing: No Difficulty Paying Gas/Electric Bills: No Difficulty Paying for Meds: No Currently Unemployed: No Education: Bachelor's Degree Difficulty w/ Childcare or Family Care: No Living arrangements: with family Gender identity (if verbalized by the patient): Female Spiritual care concerns: No Anes - Eval Final PreProcedure Day of Procedure 05/10/22 08:39 Patient weight: normal Heart: regular rate and rhythm Lungs: clear to auscultation Airway: Mallampati scale class II Neurological: alert and oriented Last oral intake: >/= 8 hours ASA classification: II Emergent: no Anesthetic plan: proceed Anesthesia type and monitoring: general GIVS and standard monitoring Results Review: All pre-operative results and documents have been reviewed as part of the pre-operative evaluation. Informed Consent: T
--- NOTE | 2022-05-10 08:40 | PM.HPGS ---
History of Present Illness History of Present Illness Consent: Risks, benefits, and alternatives have been discussed and questions answered. Patient agrees to proceed with procedure. Chief complaint: GERD Narrative: Bethanie Dickey is a 62 year old female with known history of gastroparesis, also had ERCP with stents, last EGD ~ 2009 recently with gerd and waking up at night with acid taste, used protonix for 2 weeks with only some relief. Review of Systems Constitutional: Constitutional: Denies headache(s) and Denies weakness Eyes: Eyes: Denies blurry vision ENT: Reports Normal hearing present, Denies headache(s) and Denies neck pain Cardiovascular: Cardiovascular: Denies chest pain and Denies dyspnea Respiratory: Respiratory: Denies dyspnea Gastrointestinal: Gastrointestinal: Reports no additional gastrointestinal complaints Genitourinary: Genitourinary: Denies dysuria Musculoskeletal: Musculoskeletal: Denies neck pain Integumentary/Breasts: Skin/Breast: Denies dry skin Neurologic: Reports Normal hearing present, Denies headache(s) and Denies weakness Psychiatric: Psychiatric: Denies anxiety Endocrine: Endocrine: Denies change in body appearance Hematologic/Lymphatic: Hematologic/Lymphatic: Denies easy bleeding Allergic/Immunologic: Allergic/Immunologic: Denies urticaria PMFSH Past Medical History Medical History Age related osteoporosis Anxiety Atherosclerosis Bilateral primary osteoarthritis of hip Cervical spondylosis Cholecystectomy planned Cyclic vomiting syndrome Gastroparesis GERD (gastroesophageal reflux disease) Hyperlipidemia Hypertension Hypothyroidism Major depression Migraine Psoriasis Surgical History Surgical History (Reviewed 04/05/22 @ 13:15 by Carmelita Bartholomew [facility]) H/O: hysterectomy History of back surgery Family History Family History (Updated 04/05/22 @ 13:15 by Carmelita Bartholomew [employer]) Mother Diabetes mellitus Hypertension Depression Anxiety Thyroid disorder Restless leg syndrome Grandparent Hypertension Carcinoma Other Cerebrovascular accident Family history of malignant neoplasm Social History Social History (Reviewed 04/05/22 @ 13:15 by Carmelita Bartholomew [facility]) Smoking status: Never smoker Alcohol intake: never Alcohol use details: ONCE/MONTH Substance use: never Substance use type: does not use Lack of Transportation: No Lack of Food: Never True Current Housing: I Have Housing Concerned About Future Housing: No Difficulty Paying Gas/Electric Bills: No Difficulty Paying for Meds: No Currently Unemployed: No Education: Bachelor's Degree Difficulty w/ Childcare or Family Care: No Living arrangements: with family Gender identity (if verbalized by the patient): Female Spiritual care concerns: No Meds Home Medications and Allergies Home Medications Medication Instructions Recorded Confirmed Type risankizumab-rzaa 150 mg/mL See Rx Instructions .Route .COMPLEX 02/27/22 05/10/22 History subcutaneous pen injector (Skyrizi) ascorbate calcium (vitamin C) 500 500 mg PO DAILY 04/05/22 05/10/22 History mg tablet cholecalciferol (vitamin D3) 25 25 mcg PO DAILY 04/05/22 05/10/22 History mcg (1,000 unit) capsule naproxen sodium 220 mg tablet 220 mg PO BID PRN Pain 04/05/22 05/10/22 History (Aleve) levothyroxine 75 mcg tablet 75 mcg PO DAILY #30 tabs 04/07/22 05/10/22 Rx citalopram 20 mg tablet 20 mg PO DAILY #90 tabs 05/08/22 05/10/22 Rx Allergies Allergy/AdvReac Type Severity Reaction Status Date / Time atorvastatin Allergy Unknown arthralgias Verified 05/10/22 07:44 Penicillins Allergy Unknown Hives Verified 05/10/22 07:44 pitavastatin [Livalo] Allergy Unknown confusion Verified 05/10/22 07:44 simvastatin Allergy Unknown Unknown Verified 05/10/22 07:44 Kytvzis-HHN-EsU Reductase Allergy Unknown Unresponsiv Verified 05/10/22 07:44 Inhibitor
[2022-05-10 08:56] VITALS: BP 106/60; PULSE 64; RESP 16; O2SAT 98
[2022-05-10 09:06] VITALS: BP 106/80; PULSE 67; RESP 22; O2SAT 99
[2022-05-10 09:16] VITALS: BP 128/77; PULSE 61; RESP 23; O2SAT 99
== END 2022-05-10 09:27 | disposition home or self-care (01) ==
PROVIDERS: PCP Internal Medicine; Visit Provider Internal Medicine Gastroenterology
PROC: 0DJ08ZZ Inspection of Upper Intestinal Tract, Via Natural or Artificial Opening Endoscopic (ICD-10-PCS; CPT 43235; principal; 2022-05-10 09:00)
DX: K21.00 Gastro-esophageal reflux disease with esophagitis, without bleeding (principal); I10 Essential (primary) hypertension; E78.5 Hyperlipidemia, unspecified; E03.9 Hypothyroidism, unspecified; I25.10 Atherosclerotic heart disease of native coronary artery without angina pectoris; F41.9 Anxiety disorder, unspecified; F32.A Depression, unspecified; L40.9 Psoriasis, unspecified; K31.84 Gastroparesis; M81.0 Age-related osteoporosis without current pathological fracture
CPT/HCPCS: 43239; 88305; J2704; J7120

== ENCOUNTER 2022-07-15 13:38 | Emergency (ER) | payer BC, SELFPAY ==
--- NOTE | 2022-07-15 14:04 | PC.NURSE ---
pt and approached desk and states they cannot wait any longer and walked out of ED.
== END 2022-07-15 14:38 | disposition left against medical advice (07) ==
LOC: ANHED 14:14
PROVIDERS: PCP Internal Medicine
DX: Z53.21 Procedure and treatment not carried out due to patient leaving prior to being seen by health care provider (principal)
CPT/HCPCS: 99199

== ENCOUNTER 2022-07-15 14:26 | Emergency (ER) | payer BC, SELFPAY ==
[2022-07-15 14:30] VITALS: BP 145/79; PULSE 85; RESP 20; TEMP 36.5; O2SAT 98
[2022-07-15 14:36] VITALS: BP 145/79; PULSE 85; RESP 20; TEMP 36.5; O2SAT 98
--- NOTE | 2022-07-15 14:44 | ED.NAVMDI ---
HPI - Nausea/Vomiting/Diarrhea General Chief complaint: Nausea/Vomiting/Diarrhea Stated complaint: nausea diarrhea History of Present Illness HPI Narrative: PATIENT PRESENTS WITH NAUSEA AND DIARRHEA. PATIENT DENIES ANY FEVER AND NO ABDOMINAL PAIN. PATIENT STATES SHE HAS GASTROPARESIS AND TOOK SOME ZOFRAN LAST NIGHT FOR HER NAUSEA. PATIENT WONDERS IF THE ZOFRAN WAS TOLD THAT SHE HAD BEEN IN REMISSION FOR OVER A YEAR. PATIENT REPORTS DIARRHEA LAST LIQUID STOOL WAS IN WHEN SHE IS IN THE ER AT [facility] 45 MINUTES AGO. PATIENT STATES SHE SIGNED IN AT THE EMERGENCY ROOM BUT WAS TIRED OF WAITING SO SHE CAME HERE. PATIENT STATES SHE CAN NOT GO BACK TO THE EMERGENCY ROOM DUE TO THE LONG WAIT. PATIENT WOULD LIKE A NEW PRESCRIPTION OF ZOFRAN AND SHE WILL GO HOME AND SEE IF SHE IMPROVES. Related Data Home Medications Medication Instructions Recorded Confirmed risankizumab-rzaa 150 mg/mL See Rx Instructions .Route .COMPLEX 02/27/22 05/10/22 subcutaneous pen injector (Skyrizi) ascorbate calcium (vitamin C) 500 500 mg PO DAILY 04/05/22 05/10/22 mg tablet cholecalciferol (vitamin D3) 25 25 mcg PO DAILY 04/05/22 05/10/22 mcg (1,000 unit) capsule Allergies Allergy/AdvReac Type Severity Reaction Status Date / Time atorvastatin Allergy Unknown arthralgias Verified 05/10/22 07:44 Penicillins Allergy Unknown Hives Verified 05/10/22 07:44 pitavastatin [Livalo] Allergy Unknown confusion Verified 05/10/22 07:44 simvastatin Allergy Unknown Unknown Verified 05/10/22 07:44 Utftzxj-BRQ-QxK Reductase Allergy Unknown Unresponsiv Verified 05/10/22 07:44 Inhibitor e [Cglfnzb-Yui-Vzz Reductase Inhibitor] Honey Bee Allergy Mild Unknown Uncoded 05/10/22 07:44 Review of Systems Review of Systems: CONSTITUTIONAL: DENIES FEVER, CHILLS, OR SWEATS. EYES: DENIES VISUAL CHANGES, REDNESS, OR DISCHARGE. ENT: DENIES RHINORRHEA, CONGESTION, SORE THROAT, OR OTALGIA. CARDIOVASCULAR: DENIES CHEST PAIN, PALPITATIONS, OR EDEMA. RESPIRATORY: DENIES COUGH OR DYSPNEA. GASTROINTESTINAL: DENIES ABDOMINAL PAIN, NAUSEA, VOMITING, OR DIARRHEA. GENITOURINARY: DENIES DYSURIA OR HEMATURIA. SKIN: DENIES RASH OR ITCHING. MUSCULOSKELETAL: DENIES BACK PAIN, JOINT PAIN, OR MYALGIA. NEUROLOGIC: DENIES HEADACHE, NUMBNESS, OR WEAKNESS. PSYCHIATRIC: DENIES ANXIETY OR DEPRESSION. [facility] Past Medical History Medical History Age related osteoporosis Anxiety Atherosclerosis Bilateral primary osteoarthritis of hip Cervical spondylosis Cholecystectomy planned Cyclic vomiting syndrome Gastroparesis GERD (gastroesophageal reflux disease) Hyperlipidemia Hypertension Hypothyroidism Major depression Migraine Psoriasis Surgical History Surgical History H/O: hysterectomy History of back surgery Family History Family History (Updated 04/05/22 @ 13:[address] [facility]) Mother Diabetes mellitus Hypertension Depression Anxiety Thyroid disorder Restless leg syndrome Grandparent Hypertension Carcinoma Other Cerebrovascular accident Family history of malignant neoplasm Social History Social History Smoking status: Never smoker Alcohol intake: never Alcohol use details: ONCE/MONTH Substance use: never Substance use type: does not use Lack of Transportation: No Lack of Food: Never True Current Housing: I Have Housing Concerned About Future Housing: No Difficulty Paying Gas/Electric Bills: No Difficulty Paying for Meds: No Currently Unemployed: No Education: Bachelor's Degree Difficulty w/ Childcare or Family Care: No Living arrangements: with family Gender identity (if verbalized by the patient): Female Spiritual care concerns: No Comments AT TIME OF SIGNATURE, AGREE WITH NURSING PAST MEDICAL, SURGICAL, SOCIAL AND FAMILY HISTORY. THERE
== END 2022-07-15 14:53 | disposition home or self-care (01) ==
PROVIDERS: Emergency Provider Nurse Practitioner Family; PCP Internal Medicine
DX: R11.2 Nausea with vomiting, unspecified (principal); R19.7 Diarrhea, unspecified; M81.0 Age-related osteoporosis without current pathological fracture; I70.90 Unspecified atherosclerosis; M16.0 Bilateral primary osteoarthritis of hip; M47.812 Spondylosis without myelopathy or radiculopathy, cervical region; K31.84 Gastroparesis; K21.9 Gastro-esophageal reflux disease without esophagitis; E78.5 Hyperlipidemia, unspecified; I10 Essential (primary) hypertension; E03.9 Hypothyroidism, unspecified
CPT/HCPCS: 99213; G0463

== ENCOUNTER 2022-07-28 09:31 | Outpatient (CLI) | payer BC, SELFPAY ==
[2022-07-29 08:31] LABS: Alanine Aminotransferase 60 U/L (6-35); Albumin Level 4.8 g/dL (3.5-5.1); Alkaline Phosphatase 102 U/L (38-126); Anion Gap 9 mmol/L (8-16); Aspartate Amino Transferase 56 U/L (14-36); Bilirubin,Total 0.8 mg/dL (0.2-1.3); Blood Urea Nitrogen 14 mg/dL (7-17); Calcium 9.1 mg/dL (8.4-10.2); Carbon Dioxide 27 mmol/L (22-30); Chloride 101 mmol/L (98-107); Estimated Glomerular Filt Rate 56; Glucose 97 mg/dL (65-110); Potassium 4.5 mmol/L (3.4-5.0); Sodium 137 mmol/L (137-145)
[2022-07-29 08:53] LABS: Basophils Absolute Auto 0.1 K/mm3 (0.0-0.1); Basophils Percent Auto 0.8 % (0.2-1.2); Eosinophils Absolute Auto 0.2 K/mm3 (0-0.3); Eosinophils Percent Auto 1.7 % (0-4.4); Hematocrit 45.2 % (37.0-47.0); Hemoglobin 14.9 g/dL (12.0-15.0); Immature Granulocyte Absolute 0.03 K/mm3 (0.00-0.031); Immature Granulocyte Percent A 0.3 % (0-0.5); Lymphocytes Absolute Auto 2.38 K/mm3 (0.9-3.2); Mean Corpuscular Hemoglobin 28.9 pg (26-34); Mean Corpuscular Volume 87.8 fl (80-100); Mean Platelet Volume 12.6 fl (7.4-10.4); Monocytes Absolute Auto 0.6 K/mm3 (0.1-0.6); Monocytes Percent Auto 6.9 % (2.6-8.5); Neutrophils Absolute Auto 5.6 K/mm3 (1.3-6.7); Neutrophils Percent Auto 63.3 % (45.5-73.1); Platelet Count Result 262 k/mm3 (150-375); Red Blood Count 5.15 M/mm3 (4.2-5.4); Red Cell Distribution Width 13.9 % (11.5-14.5); White Blood Count 8.8 K/mm3 (4.5-10.0)
[2022-07-29 09:01] LABS: Thyroid Stimulating Hormone 0.805 uIU/mL (0.465-4.680)
[2022-07-29 09:32] LABS: Erythrocyte Sedimentation Rate 11 mm/hr (0-20)
[2022-08-02 13:32] LABS: Gliadin AB, IgG <1.0 U/mL (<15.0); TTG IGA AB <1.0 U/mL (<15.0)
== END 2022-07-28 09:32 | disposition home or self-care (01) ==
LOC: ANHGOSHLAB 09:32
PROVIDERS: PCP Internal Medicine; Visit Provider Nurse Practitioner
DX: R19.7 Diarrhea, unspecified (principal)
CPT/HCPCS: 36415; 80053; 84443; 85025; 85652; 86255; 86364

== ENCOUNTER 2022-07-29 11:40 | Outpatient (CLI) | payer BC, SELFPAY | END 2022-07-29 11:41 | disposition home or self-care (01) | LOC: ANHLAB 11:41 | PROVIDERS: PCP Internal Medicine; Visit Provider Nurse Practitioner | DX: R19.7 Diarrhea, unspecified (principal) | CPT/HCPCS: 87045; 87427 ==

== ENCOUNTER 2023-02-22 14:58 | Outpatient (CLI) | payer MEDICARE, SELFPAY ==
[2023-02-22 19:50] LABS: Iron 74 ug/dL (37-170)
[2023-02-22 19:58] LABS: Magnesium 2.2 mg/dL (1.6-2.3)
[2023-02-22 19:59] LABS: Alanine Aminotransferase 34 U/L (6-35); Albumin Level 4.3 g/dL (3.5-5.1); Alkaline Phosphatase 83 U/L (38-126); Anion Gap 7 mmol/L (8-16); Aspartate Amino Transferase 38 U/L (14-36); Bilirubin,Total 0.7 mg/dL (0.2-1.3); Blood Urea Nitrogen 17 mg/dL (7-17); Calcium 9.2 mg/dL (8.4-10.2); Carbon Dioxide 30 mmol/L (22-30); Chloride 102 mmol/L (98-107); Estimated Glomerular Filt Rate 56; Glucose 94 mg/dL (65-110); Potassium 3.9 mmol/L (3.4-5.0); Sodium 139 mmol/L (137-145)
[2023-02-22 20:03] LABS: Percent Iron Saturation 21 % (20-50)
[2023-02-22 20:08] LABS: Free T4 Free Thyroxine 1.41 ng/mL (0.78-2.19)
== END 2023-02-22 14:59 | disposition home or self-care (01) ==
LOC: ANHGOSHLAB 15:01
PROVIDERS: PCP Internal Medicine; Visit Provider Nurse Practitioner
DX: E03.9 Hypothyroidism, unspecified (principal); M25.569 Pain in unspecified knee; R25.2 Cramp and spasm; Z13.29 Encounter for screening for other suspected endocrine disorder; R74.01 Elevation of levels of liver transaminase levels; R94.4 Abnormal results of kidney function studies
CPT/HCPCS: 36415; 80053; 83540; 83550; 83735; 84439; 84443

== ENCOUNTER 2023-03-07 10:34 | Emergency (ER) | payer MEDICARE, SELFPAY ==
[2023-03-07 10:40] VITALS: BP 151/64; PULSE 64; RESP 16; TEMP 37.1; O2SAT 97
--- NOTE | 2023-03-07 10:57 | ED.URI ---
HPI - URI/Sore Throat General Chief Complaint: Upper Respiratory Infection Stated Complaint: Sore Throat/Cough Time Seen by Provider: 03/07/23 10:57 Source: patient, RN notes reviewed and old records reviewed Mode of arrival: ambulatory Limitations: no limitations History of Present Illness HPI Narrative: 63 year old female presents to [facility] care with complaints of sore throat and cough which started on Sunday which included cough, sore throat and fever since Sunday. Patient reports that she has been taking Mucinex DM and NyQuil for her symptoms. Patient reports that she did have grandchildren over the weekend that were ill. Patient has been taking Mucinex DM and also NyQuil for her symptoms. Patient reports that cough is keeping her up at night. MD elicited complaint: fever, cough and sore throat Onset (ago): day(s) (3) Consistency: constant Severity: moderate Pain scale (0-10): 5 Description of mucous: clear Able to tolerate fluids by mouth: Yes Treatments prior to arrival: other (Mucinex DM) Related Data Home Medications Medication Instructions Recorded Confirmed ascorbate calcium (vitamin C) 500 500 mg PO DAILY 04/05/22 07/28/22 mg tablet Estrogen Patch 03/07/23 Allergies Allergy/AdvReac Type Severity Reaction Status Date / Time atorvastatin Allergy Unknown arthralgias Verified 03/07/23 10:41 Penicillins Allergy Unknown Hives Verified 03/07/23 10:41 pitavastatin [Livalo] Allergy Unknown confusion Verified 03/07/23 10:41 simvastatin Allergy Unknown Unknown Verified 03/07/23 10:41 Qweqnwr-YRK-UsZ Reductase Allergy Unknown Unresponsiv Verified 03/07/23 10:41 Inhibitor e [Wzukamo-Xsr-Tel Reductase Inhibitor] Honey Bee Allergy Mild Unknown Uncoded 03/07/23 10:41 Review of Systems Review of Systems: CONSTITUTIONAL: Reports malaise, chills, sweats, or fever. EYES: Denies visual changes, redness, or discharge. ENT: Reports rhinorrhea, congestion, no sinus pain, no otalgia and positive for sore throat. CARDIOVASCULAR: Denies chest pain, palpitations, or edema. RESPIRATORY: Reports harsh cough.? Denies dyspnea. GASTROINTESTINAL: Denies abdominal pain, nausea, vomiting, diarrhea SKIN: Denies rash or itching. MUSCULOSKELETAL: Denies myalgia. NEUROLOGIC: Positive headache. All systems reviewed & are unremarkable except as noted in HPI and below PMFSH Past Medical History Medical History (Updated 03/07/23 @ 11:16 by Ekaterina Rodriguez NP) Age related osteoporosis Anxiety Atherosclerosis Bilateral primary osteoarthritis of hip Cervical spondylosis Cholecystectomy planned Cyclic vomiting syndrome Gastroparesis GERD (gastroesophageal reflux disease) Hyperlipidemia Hypertension Hypothyroidism Major depression Migraine Psoriasis Surgical History Surgical History (Updated 03/07/23 @ 11:46 by Ekaterina Rodriguez NP) H/O: hysterectomy History of back surgery History of cholecystectomy Family History Family History Mother Diabetes mellitus Hypertension Depression Anxiety Thyroid disorder Restless leg syndrome Grandparent Hypertension Carcinoma Other Cerebrovascular accident Family history of malignant neoplasm Social History Social History Smoking status: Never smoker Alcohol intake: never Alcohol use details: ONCE/MONTH Substance use: never Substance use type: does not use Lack of Transportation: No Lack of Food: Never True Current Housing: I Have Housing Concerned About Future Housing: No Difficulty Paying Gas/Electric Bills: No Difficulty Paying for Meds: No Currently Unemployed: No Education: Bachelor's Degree Difficulty w/ Childcare or Family Care: No Living arrangements: with family Gender identity (if verbalized by the patient): Female Spiritual care concerns: No Comments At time of signature, agree
== END 2023-03-07 11:22 | disposition home or self-care (01) ==
PROVIDERS: Emergency Provider Registered Nurse; PCP Internal Medicine
DX: J06.9 Acute upper respiratory infection, unspecified (principal); R05.1 Acute cough; Z20.822 Contact with and (suspected) exposure to COVID-19; M81.0 Age-related osteoporosis without current pathological fracture; I25.10 Atherosclerotic heart disease of native coronary artery without angina pectoris; M16.0 Bilateral primary osteoarthritis of hip; M47.812 Spondylosis without myelopathy or radiculopathy, cervical region; K21.9 Gastro-esophageal reflux disease without esophagitis; E78.5 Hyperlipidemia, unspecified; I10 Essential (primary) hypertension; E03.9 Hypothyroidism, unspecified; L40.9 Psoriasis, unspecified
CPT/HCPCS: 87081; 87426; 87804; 87880; 99213; C9803; G0463

== ENCOUNTER 2023-03-20 10:14 | Emergency (ER) | payer MEDICARE, SELFPAY ==
--- NOTE | ~2023-03-20 | XR_ITS ---
EXAMINATION: XR chest 2V 03/20/2023 11:18 INDICATION: Cough for 3 weeks PROCEDURE: PA and lateral views of the chest COMPARISON: 12/09/2016 FINDINGS: The lungs are clear. The cardiomediastinal silhouette is within normal limits. There are no pleural effusions. There is no pneumothorax suspected. IMPRESSION: 1: NO ACUTE CARDIOPULMONARY DISEASE. Reviewed, dictated and finalized at location L. [employer]
[2023-03-20 10:38] VITALS: BP 127/69; PULSE 74; RESP 16; TEMP 36.6; O2SAT 98
[2023-03-20 10:39] VITALS: BP 127/69; PULSE 74; RESP 16; TEMP 36.6; O2SAT 98
--- NOTE | 2023-03-20 10:54 | ED.URI ---
HPI - URI/Sore Throat General Chief Complaint: Upper Respiratory Infection Stated Complaint: Cough, Sore Throat, Chest Pain Time Seen by Provider: 03/20/23 10:45 Source: patient Mode of arrival: ambulatory Limitations: no limitations History of Present Illness HPI Narrative: Bethanie is a 63-year-old female patient presenting to the clinic today with complaints of cough, sore throat, and chest discomfort. She reports symptoms have been going on for about 2-3 weeks. Was seen approximately 1 week ago and was tested for COVID, flu, and strep in all those test were negative. It did not do a chest x-ray at that time. She reports that she is having a lot of coughing. Cough is dry. States they gave her a steroid and some Cheratussin at her last visit. MD elicited complaint: sore throat and nasal congestion Related Data Home Medications Medication Instructions Recorded Confirmed ascorbate calcium (vitamin C) 500 500 mg PO DAILY 04/05/22 03/20/23 mg tablet Estrogen Patch 03/07/23 Allergies Allergy/AdvReac Type Severity Reaction Status Date / Time atorvastatin Allergy Unknown arthralgias Verified 03/20/23 10:39 Penicillins Allergy Unknown Hives Verified 03/20/23 10:39 pitavastatin [Livalo] Allergy Unknown confusion Verified 03/20/23 10:39 simvastatin Allergy Unknown Unknown Verified 03/20/23 10:39 Tisissu-PXC-DoV Reductase Allergy Unknown Unresponsiv Verified 03/20/23 10:39 Inhibitor e [Lvgyfuy-Hsa-Btr Reductase Inhibitor] Honey Bee Allergy Mild Unknown Uncoded 03/20/23 10:39 Review of Systems Review of Systems: Pertinent positives per HPI. Patient denies any fever, chills, rash, headache, visual changes, dizziness, chest pain, palpitations, nausea, vomiting, diarrhea, constipation, abdominal pain, or any urinary issues. [facility] Past Medical History Medical History Age related osteoporosis Anxiety Atherosclerosis Bilateral primary osteoarthritis of hip Cervical spondylosis Cholecystectomy planned Cyclic vomiting syndrome Gastroparesis GERD (gastroesophageal reflux disease) Hyperlipidemia Hypertension Hypothyroidism Major depression Migraine Psoriasis Surgical History Surgical History H/O: hysterectomy History of back surgery History of cholecystectomy Family History Family History Mother Diabetes mellitus Hypertension Depression Anxiety Thyroid disorder Restless leg syndrome Grandparent Hypertension Carcinoma Other Cerebrovascular accident Family history of malignant neoplasm Social History Social History Smoking status: Never smoker Alcohol intake: never Alcohol use details: ONCE/MONTH Substance use: never Substance use type: does not use Lack of Transportation: No Lack of Food: Never True Current Housing: I Have Housing Concerned About Future Housing: No Difficulty Paying Gas/Electric Bills: No Difficulty Paying for Meds: No Currently Unemployed: No Education: Bachelor's Degree Difficulty w/ Childcare or Family Care: No Living arrangements: with family Gender identity (if verbalized by the patient): Female Spiritual care concerns: No Comments At the time of my signature, I reviewed and agree with the nursing past medical, surgical, social, and family history. There is no relevant family history pertinent to the patient complaint. Exam Narrative: General: Well-developed, well nourished, in no apparent distress Head: Normocephalic, atraumatic Eyes: Pupils equally round and reactive to light bilaterally, EOM intact, sclera and conjunctive clear, no discharge, lids normal Ears: TMs intact and clear, ear canals clear, no drainage, grossly hearing normal. Nose: Nares patent, clear nasal discharge
--- NOTE | 2023-03-20 10:55 | ECG_ITS ---
Measurements Intervals [place] Rate: 72 P: 70 HI: 134 QRS: 45 QRSD: 90 T: 40 QT: 383 QTc: 422 Interpretive Statements SINUS RHYTHM COMPARED TO ECG 08/27/2021 16:44:04 NO SIGNIFICANT CHANGES Electronically Signed On 03-20-2023 16:04:43 PSYCHOLOGY INTERN by Ana Viveros M.D.
[2023-03-20] MEDS: IPRATROPIUM BR 0.02% INH SOLN 0.5 MG/2.5 ML VIAL INHALATION (11:12)
[2023-03-20] MEDS: ALBUTEROL SULFATE NEB 2.5 MG/3 ML INH INHALATION (11:12)
[2023-03-20 11:20] VITALS: PULSE 74; RESP 18; O2SAT 98
[2023-03-20 11:50] VITALS: PULSE 74; RESP 18; O2SAT 97
== END 2023-03-20 11:55 | disposition home or self-care (01) ==
PROVIDERS: Emergency Provider Nurse Practitioner Family; PCP Internal Medicine
DX: J40 Bronchitis, not specified as acute or chronic (principal); M81.0 Age-related osteoporosis without current pathological fracture; I70.90 Unspecified atherosclerosis; M16.0 Bilateral primary osteoarthritis of hip; K21.9 Gastro-esophageal reflux disease without esophagitis; E78.5 Hyperlipidemia, unspecified; I10 Essential (primary) hypertension; E03.9 Hypothyroidism, unspecified; F32.9 Major depressive disorder, single episode, unspecified; F41.9 Anxiety disorder, unspecified
CPT/HCPCS: 71046; 93005; 94640; 99213; G0463

== ENCOUNTER 2023-06-15 10:28 | Outpatient (CLI) | payer MEDICARE, SELFPAY ==
[2023-06-15 15:49] LABS: Alanine Aminotransferase 28 U/L (6-35); Albumin Level 4.4 g/dL (3.5-5.1); Alkaline Phosphatase 75 U/L (38-126); Anion Gap 3 mmol/L (8-16); Aspartate Amino Transferase 39 U/L (14-36); Bilirubin,Total 0.8 mg/dL (0.2-1.3); Blood Urea Nitrogen 14 mg/dL (7-17); Calcium 9.2 mg/dL (8.4-10.2); Carbon Dioxide 30 mmol/L (22-30); Chloride 107 mmol/L (98-107); Estimated Glomerular Filt Rate > 60; Glucose 93 mg/dL (65-110); Potassium 4.3 mmol/L (3.4-5.0); Sodium 140 mmol/L (137-145)
[2023-06-15 17:16] LABS: Thyroid Stimulating Hormone 0.557 uIU/mL (0.465-4.680)
== END 2023-06-15 10:29 | disposition home or self-care (01) ==
LOC: ANHGOSHLAB 10:29
PROVIDERS: Nurse Practitioner; PCP Internal Medicine; Visit Provider Nurse Practitioner
DX: E03.9 Hypothyroidism, unspecified (principal); R74.01 Elevation of levels of liver transaminase levels; R94.4 Abnormal results of kidney function studies
CPT/HCPCS: 36415; 80053; 84443

== ENCOUNTER 2024-02-29 15:11 | Outpatient (CLI) | payer MEDICARE, SELFPAY ==
--- NOTE | ~2024-02-29 | US_ITS ---
EXAMINATION: US thyroid DATE: 02/29/2024 15:28 INDICATION: Nontoxic single thyroid nodule. TECHNIQUE: Multiple ultrasound images of the thyroid were obtained. COMPARISON: None. FINDINGS: The right thyroid lobe measures 2.9 x 0.8 x 0.8 cm. The left thyroid lobe measures 2.1 x 0.9 x 0.6 c m. There is normal echotexture and echogenicity throughout the thyroid gland. No discrete nodules id entified. Normal vascular flow is present. IMPRESSION: 1. Small thyroid. Reviewed, dictated and finalized at location A. [employer] IMPRESSION: 1. Small thyroid.
== END 2024-02-29 15:12 | disposition home or self-care (01) ==
LOC: MICIMG 15:11
PROVIDERS: PCP Clinical Nurse Specialist; Visit Provider Clinical Nurse Specialist
DX: E04.1 Nontoxic single thyroid nodule (principal)
CPT/HCPCS: 76536

== ENCOUNTER 2024-10-22 14:55 | Outpatient (CLI) | payer MEDICARE, SELFPAY ==
--- NOTE | ~2024-10-22 | DEXA_ITS ---
Bone Density Report Name: HAN PAREKH Age: 64 Sex: Female Ethnicity: White Date of : 1960 Indication: postmenopausal; screening for osteoporosis; hysterectomy; Referring Provider: ARAMIS FLORES Study: Bone densitometry was performed. Exam Date: October 22, 2024 Accession number: [id number] Bone Density: Region BMD T-score Z-score Classification AP Spine(L1-L4) 1.019 -0.3 1.6 Normal Femoral Neck (Left) 0.683 -1.5 0.1 Osteopenia Total Hip (Left) 0.871 -0.6 0.7 Normal Femoral Neck (Right) 0.631 -2.0 -0.4 Osteopenia Total Hip (Right) 0.803 -1.1 0.2 Osteopenia Total Hip Mean 0.837 -0.9 0.5 Normal World Health Organization criteria for BMD impression classify patients as: Normal (T-score at or above -1.0), Osteopenia (T-score between -1.0 and -2.5), or Osteoporosis (T-score at or below -2.5). 10-year Fracture Risk(1): Major Osteoporotic Fracture 11% Hip Fracture 1.6% Reported Risk Factors: [place] (), Neck BMD=0.631, BMI=28.2 (1) FRAX(R) Version 3.08. Fracture probability calculated for an untreated patient. Fracture probability may be lower if the patient has received treatment. Clinical Information Provided by Patient: Has used the following medications: Vitamin D, Calcium Has the following medical conditions: Hysterectomy Patient maximum height was 63.5 Menopause Age: 30 No regular weight bearing exercise Drinks caffeinated beverages Onset of menses at age 10 Number of children 2 Impression: The patient has low bone mass, based on the Right Femoral Neck T-score. The patient has an estimated ten-year risk of hip fracture of 1.6% and an estimated ten-year risk of major fracture of 11%, based on the WHO FRAX algorithm. Discussion: BONE DENSITY IS LOW AT ONE OR MORE SKELETAL SITES. This patient's lowest T-score is low at one or more skeletal sites. It meets the World Health Organization's (WHO) criteria for ?low bone mass? (T-score between -1.0 and -2.5). The patient's 10-year risk of fracture as calculated by FRAX is less than the threshold where pharmacological therapy is recommended by the National Osteoporosis Foundation (NOF). However, all treatment decisions require clinical judgment and consideration of individual patient factors, including patient preferences, comorbidities, previous drug use, risk factors not captured in the FRAX model (e.g., frailty, falls, vitamin D deficiency, increased bone turnover, interval significant decline in bone density) and possible under or overestimation of fracture risk by FRAX. The patient should follow a healthful lifestyle (good nutrition with adequate calcium and vitamin D, and appropriate weight-bearing exercise). Follow-Up: Consider repeating this study in 2 to 3 years to reassess this patient's status, or sooner if there is some new clinical indication. Reported by: BURKE on 10/22/2024 3:37:00 PM. Reviewed, dictated and finalized at location A.
--- NOTE | ~2024-10-22 | MM_ITS ---
EXAMINATION: MM screening prem BI w addie HISTORY: Screening TECHNIQUE: Craniocaudal and mediolateral oblique 3-D tomosynthesis images were obtained and synthetic 2-D images were generated. CAD analysis was submitted and interpreted. COMPARISON: Comparison to multiple prior studies sequentially, with oldest reviewed study dated 09/16. BREAST PARENCHYMAL COMPOSITION: Not dense: There are scattered areas of fibroglandular density. FINDINGS: There is no evidence of suspicious mass, calcification, or architectural distortion to sugg est malignancy in either breast. There has been no suspicious interval change. IMPRESSION: 1. No mammographic evidence of malignancy. 2. Recommend routine screening mammography in one year. BI-RADS Category 1: Negative Reviewed, dictated and finalized at location B.
--- OUTSIDE RECORDS SUMMARY | 2024-10-22 15:00 | XMS_ITS | Clinical Summary ---
Author Organization [facility] Address [address] [place] [address] Phone Care Team Providers Care Prison Psychiatrist Name Role Phone Harsha Bey DO Primary Care Provider Allergies Active Allergy Reactions Criticality Noted Date Comments Hymenoptera Allergenic Extract Hives High 07/18/2018 Penicillins Hives,Rash High 07/28/2008 Hrzbxus-Dsn-Vnz Reductase Inhibitors Other (See Comments) 02/17/2019 Possible seizure Medications citalopram (CeleXA) 20 mg tablet Take 20 mg by mouth daily at bedtime. Active levothyroxine 88 mcg tablet 2 Active pantoprazole (PROTONIX) 40 mg Tablet, Delayed Release (E.C.) 4 Active ondansetron (ZOFRAN ODT) 8 mg Tablet, Rapid Dissolve ondansetron 8 mg disintegrating tablet Active levothyroxine 100 mcg tablet 1 Active nortriptyline (PAMELOR) 10 mg capsule Take 1 Capsule (10 mg) by mouth daily at bedtime. 30 Capsule 1 4 Active Active Problems Problem Noted Date Diagnosed Date STEC (Shiga toxin-producing Escherichia coli) Gastroparesis 02/12/2020 Irritable bowel syndrome wit h both constipation and diarrhea 02/12/2020 Common bile duct stenosis 02/12/2020 History of cholecystectomy 02/16/2019 Hypothyroidism 02/16/2019 Intractable cyclical vomiting syndrome Abdominal pain E. coli colitis Resolved Problems Problem Noted Date Diagnosed Date Resolved Date Protein-calorie malnutrition, moderate 02/19/2019 02/12/2020 RUQ abdominal pain 02/16/2019 0 Nausea & vomiting 02/16/2019 02/12/2020 Frequent loose stools 02/16/20192019 Family History Medical History Relation Name Comments Hypertension Mother Colon Cancer Neg Hx Relation Name Status Comments Mother Social History Tobacco Use Types Packs/Day Years Used Date Smoking Tobacco: Never Smokeless Tobacco: Never Tobacco Cessation:Counseling Given: Not Answered Alcohol Use Standard Drinks/Week Comments Yes 0 (1 standard drink = 0.6 oz pur e alcohol) occ Comments No Sex and Gender Information Value Date Recorded Sex Assigned at Not on file Legal Sex Female 9:19 AM CHEMISTRY LABORATORY TECHNICIAN Gender Identity Not on file Sexual Orientation Not on file Last Filed Vital Signs Vital Sign Reading Time Taken Comments Blood Pressure 122/90 06/26/2023 1:28 PM CDT Pulse 64 06/26/2023 1:28 PM CDT Temperature 36.7 C (98.1 F) 02/15/2020 5:00 AM CHEMISTRY LABORATORY TECHNICIAN Respiratory Rate 18 06/26/2023 1:28 PM CDT Oxygen Saturation 97% 06/26/2023 1:28 PM CDT Inhaled Oxygen Concentration - - Weight 68.2 kg (150 lb 6.4 oz) 06/26/2023 1:28 P M CDT Height 160 cm (5' 3) 06/26/2023 1:28 PM CDT Body Mass Index 26.64 06/26/2023 1:28 PM CDT Plan of Treatment Health Maintenance Due Date Last Done Comments BREAST CANCER SCREENING 1998 FIT-DNA Q 3 years 2003 FIT/FOBT Q 1 year 2003 Flex Sig/CT Colonography Q 5 years 2003 PNEUMOCOCCAL VACCINE 50+ YEA RS (1 of 1 - PCV) 02/15/2008 OSTEOPOROSIS SCREENING 2023 INFLUENZA VACCINE (#1) 2024 9, 01/02/2018, 12/04/2016, Additional history exists COLORECTAL SCREENING 05/28/2028 05/28/2018, 05/29/19 19 Colorectal Cancer Screening 05/28/2028 DTAP/TDAP/TD VACCINES (2 - T d or Tdap) 01/08/2032 01/07/2022 RSV VACCINE (60+ or ) (1 - 1-dose 75+ series) 2033 ZOSTER VACCINE Completed 05/15/2019, 12/16/2018 Procedures Procedure Name Priority Date/Time Associated Diagnosis Comments COLONOSCOPY REPORT 05/28/2018 10 :15 AM CHEMISTRY LABORATORY TECHNICIAN from Last 3 Months or Most Recently Relevant to Health Maintenance Results * COLONOSCOPY REPORT (05/28/2018 10:15 AM CHEMISTRY LABORATORY TECHNICIAN) Narrative Procedure Note Jonathan Falcon MD - 05/28/2018 10:15 AM CST [facility] Endoscopy Patient Name: Bethanie Dickey Procedure Date: 05/28/2018 Date of : 1960 Admit Type: Outpatient Age: 58 Attending MD: Jonathan Falcon MD Procedure: Colonoscopy Indications: Screening for colorectal malignant neoplasm Providers: Jonathan Falcon MD Referring MD: Jonathan Travis MD Medicines: Propofol per Anesthesia Procedure: Informed consent was obtained for the procedure, including moderate sedation after risks were discussed. Based on the pre-procedure assessment, including review of the patient's medical history, medications, allergies, and review of systems, the patient was deemed to be an appropriate candidate for sedation. A timeout was performed. Continuous ECG monitoring, pulse oximetry, blood pressure monitoring, and direct observation were performed. The Colonoscope was introduced through the anus and advanced to the cecum, identified by appendiceal orifice and ileocecal valve. The colonoscopy was performed without difficulty. The patient tolerated the procedure well. The quality of the bowel preparation was excellent. Estimated Blood Loss: Estimated blood loss: none. Findings: A few small-mouthed diverticula were found in the sigmoid colon and ascending colon. Non-bleeding internal hemorrhoids were found during retroflexion. The hemorrhoids were small. The exam was otherwise without abnormality. Complications: No immediate complications. Impression: - Diverticulosis in the sigmoid colon and in the ascending colon. - Non-bleeding internal hemorrhoids. - The examination was otherwise normal. - No specimens collected. Recommendation: - Repeat colonoscopy in 10 years for surveillance. Jonathan Falcon MD 05/28/2018 10:15:05 AM This report has been signed electronically. Number of Addenda: 0 Procedure Date: 05/28/2018 9:44:47 AM [id number] [address] [place] Jonathan Falcon MD GI PROCEDURE ORDERABLES Megha l Result from Last 3 Months or Most Recently Relevant to Health Maintenance Additional Health Concerns Infection Onset Date Last Indicated Escherichia Coli 0157:H7 (E. Coli) 02/12/2020 02/12/2020 Insurance RX [employer] RX Member Subscriber Plan / Payer (Ef fective for All Dates) Name:Bethanie Dickey Relation to Subscriber:Spouse Name:Bethanie Dickey Payer ID:Not on file Type:RX LDI Address: [place], [place] [facility] DUAL COMPLETE HMO [facility] [address] Advance Directives For more information, please contact: [phone] * Full Code (Latest Code Status on File) Date Activated Date Inactivated Comments 02/12/2020 4:52 PM 02/15/2020 8:05 PM * Full Code Date Activated Date Inactivated Comments 03/27/2019 12:39 PM 03/27/2019 3:21 PM * Full Code Date Activated Date Inactivated Comments 02/17/2019 12:19 AM 02/19/2019 7:26 PM * Full Code Date Activated Date Inactivated Comments 05/28/2018 9:04 AM 05/28/2018 12:41 PM Care Teams Prison Psychiatrist Relationship Specialty Start Date End Date Harsha Bey DO [address] [address] PCP - General Internal Medicine 09/08/21
--- OUTSIDE RECORDS SUMMARY | 2024-10-22 15:00 | XMS_ITS | Referral Summary ---
Author Organization [facility] [place] [facility] Address [address] [place] [address] Care Team Providers Care Brusher Machine Name Role Phone Harsha Bey DO Unavailable [phone] Jesus Stafford MD Primary Care Provider [phone] Encounters Date Type Department Care Team Description 10/16/2024 Telephone [facility] [address] [place] [address] Jesus Stafford MD Call Back 08/29/2024 1:45 PM CDT Office Visit [facility] Primary Care at [address] [place] [phone] Jesus Stafford MD Laceration of right thumb without foreign body with damage to nail, subsequent encounter (Primary Dx); Breast cancer screening by mammogram; Post-menopausal; Colon cancer screening 08/27/2024 [facility] Accountable Care Organization [address] [place] [id number] Jacquelin Stephenson MA 08/26/2024 [facility] Care [address] [address] Jacquelin Stephenson MA 08/24/2024 6:54 PM CDT - 08/24/2024 8:36 PM CDT Emergency [facility] Emergency Department 1 [place] [address] Laceration of right thumb with damage to nail (Primary Dx) Discharge Disposition: Discharge to home or self care 08/15/2024 Telephone [facility] [address] [address] Jesus Stafford MD Medication Request 08/15/2024 7:30 AM CDT Office Visit [facility] [address] [phone] Lory Sanabria NP Dizziness (Primary Dx); Hypertension, essential; BMI 28.0-28.9,adult 08/14/2024 Nurse Triage [facility] [address] [address] Jesus Stafford MD 08/11/2024 Results Follow-Up [facility] Primary Care at [address] [place] [phone] Jesus Stafford MD XR Knee Right 4+ Vw, Hemoglobin A1c, Thyroid Function [place], Additional followed-up results: 9 08/08/2024 12:25 PM CDT Lab [address] [phone] Family history of diabetes mellitus (DM); Acquired hypothyroidism; Encounter for hepatitis C screening test for low risk patient; Need for hepatitis B screening test; Lipid screening 08/08/2024 12:23 PM CDT - 08/08/2024 11:59 PM CDT Hospital Encounter [facility] [address] [place] [id number] Bilateral primary osteoarthritis of knee Discharge Disposition: Discharge to home or self care 08/06/2024 4:00 PM CDT Office Visit [facility] [address] [address] Jesus Stafford MD Medicare annual wellness visit, subsequent (Primary Dx); Need for hepatitis B screening test; Encounter for hepatitis C screening test for low risk patient; Osteoporosis screening; Encounter for screening mammogram for malignant neoplasm of breast; Encounter to establish care with new doctor; Acquired hypothyroidism; Lipid screening; Colon cancer screening; Post-menopause; Bilateral primary osteoarthritis of knee; Family history of diabetes mellitus (DM); Hypertension, essential; Other social stressor from Last 3 Months Allergies Active Allergy Reactions Criticality Noted Date Comments Hymenoptera Allergenic Extract Hives High 07/18/2018 Apremilast Diarrhea Low 08/06/2024 Penicillins Rash,Hives,Urticaria High 07/28/2008 Penicillins Hives Medium 01/07/20[address] Reductase Inhibitors Seizures,Other (See comments) High 07/17/2017 Possible seizure Venom-Honey Bee Swelling Medium 06/20/2016 Medications MULTIVITAMIN ORAL Take by mouth daily Active cholecalciferol (VITAMIN D-3) 2000 unit tablet Take by mouth daily OTC Active levothyroxine (SYNTHROID) 75 mcg tablet Take 1 tablet (75 mcg total) by mouth tele rn before breakfast Active citalopram (CeleXA) 20 mg tablet Take 1 tablet (20 mg total) by mouth daily 90 tablet 3 5 08/07/[address] (PROTONIX) 40 mg EC tablet Take 1 tablet (40 mg total) by mouth daily 90 tablet 3 5 08/07/19 26 Active losartan (COZAAR) 25 mg tabletIndicatio ns:Hypertension , essential Take 1 tablet (25 mg total) by mouth daily 30 tablet 11 5 08/16/19 26 Active Active Problems Problem Noted Date Diagnosed Date Other social stressor 08/26/2024 Assessment & Plan (08/26/2024 4:34 PM CDT): Stable, generally well controlled; patient has chronic fatigue, mental stressors at work Continue citalopram 20 mg daily Laceration of right thumb with damage to nail Dizziness 08/15/2024 Assessment & Plan (08/15/2024 9:27 AM CDT): Intermittent dizziness and feeling faint for the past 3 days, noticed after starting propranolol. Denies any headache, visual disturbance or recent illness. No palpitations, shortness for breath or chest pain. EKG showing normal sinus rhythm, heart rate 60. Suspect symptoms related to propranolol, will discontinue and monitor response. No abnormal findings on exam, patient denies dizziness at time of appointment. Encouraged her to push fluids. Follow-up if symptoms persist or if experiencing any new or worsening symptoms. Hypertension, essential 08/15/2024 Assessment & Plan (08/26/2024 4:34 PM CDT): Stable, well controlled, blood pressure at goal; continue losartan 25 mg daily Assessment & Plan (08/15/2024 9:28 AM CDT): Previously taking losartan 50 mg tablet, report read pressure was too low and medication was adjusted. Will restart losartan at 25 mg daily. Discontinue propranolol. Patient to continue periodically checking blood pressure at home, ensure checking at least 2-3 hours after taking medication. Breast lump 10/03/2021 Intractable cyclical vomiting syndrome 2 Pain of breast 10/03/2021 Common bile duct stenosis 02/12/2020 Gastroparesis 02/12/2020 Irritable bowel syndrome wit h both constipation and diarrhea 02/12/2020 STEC (Shiga toxin-producing Escherichia coli) Hypothyroidism 02/16/2019 Assessment & Plan (08/26/2024 4:33 PM CDT): Stable, well controlled; no major changes to weight; patient reports chronic fatigue Continue levothyroxine 75 mcg daily; continue to trend TSH History of cholecystectomy 02/16/2019 SI (sacroiliac) joint dysfunction 07/17/2017 Knee pain 11/23/2016 Chronic pain 06/21/2016 Lumbar radiculopathy 06/21/2016 Stenosis of intervertebral foramina 06/21/2016 Low back pain 06/20/2016 Headache(784.0) 06/20/2016 Never smoked tobacco 12/05/2011 Immunizations Immunization Administration Dates Next Due Influenza, Quadrivalent, Doris l Culture-based MDCK, Preservative Free, Antibiotic Free, Intramuscular 12/16/2018,12/04/2016 Influenza, Quadrivalent, Spl it, Preservative Free, Intramuscular 01/02/2018,12/06/2015 Influenza, Trivalent, IM (MDV) 01/19/2015 Tdap 01/07/2022 ZOSTER Recombinant 05/15/2019,12/16/2018 Social History Tobacco Use Types Packs/Day Years Used Date Smoking Tobacco: Never Smokeless Tobacco: Never AUDIT-C Answer Date Recorded Q1: How often do you have a drink containing alc ohol? Monthly or less 08/06/2024 Q2: How many drinks containi ng alcohol do you have on a typical day when you are drinking? 1 or 2 08/06/2024 Q3: How often do you have si x or more drinks on one occasion? Never 08/06/2024 PHQ-2 Answer Date Recorded PHQ-2 Total Score (If total score is 3 or more points, staff should administer the PHQ-9) 0 08/15/2024 Personal Safety Answer Date Recorded Have you ever been in or are you currently in a harmful physical or emotional relationship or is someone making you feel afraid or unsafe? 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 Gender Identity Not on file Sexual Orientation Not on file Last Filed Vital Signs Vital Sign Reading Time Taken Comments Blood Pressure 120/70 08/29/2024 1:33 PM CDT Pulse 69 08/29/2024 1:33 PM CDT Temperature 36.2 C (97.1 F) 08/29/2024 1:33 PM CDT Respiratory Rate 16 08/24/2024 8:35 PM CDT Oxygen Saturation 97% 08/29/2024 1:33 PM CDT Inhaled Oxygen Concentration - - Weight 68.4 kg (150 lb 12.8 oz) 08/29/2024 1:33 PM CDT Height 154.9 cm (5' 1) 08/29/2024 1:33 PM CDT Body Mass Index 28.49 08/29/2024 1:33 PM CDT Plan of Treatment Scheduled Procedures Name Priority Associated Diagnoses Date/Ti de LIFT - FACE Encounter for cosmetic surgery ENDOSCOPIC BROWLIFT Encounter for cosmetic surgery Goals Goal Patient Goal Type Associated Problems Recent Progress Patient-Stated? Author CCM Chronic Pain Care Plan Chronic Care Management Lydia Sutton, RN Note: Problem: Chronic Pain Goals: 1. Minimize further functional decline 2. Maximize quality of life 3. Control pain Strategies: - Activity/exercise program recommendation - Conservative stepwise pain medicine strategy with multi-disciplinary approach - Recommend healthy lifestyle strategies and compensatory methods as needed Medical Devices Implanted Type Area Tab Card Press Operator Device Identifier Shelf Expiration Date Model / Serial / Lot Breast Breast Bilateral: Breast Procedures Procedure Name Priority Date/Time Associated Diagnosis Comments XR FINGER THUMB RIGHT ED 08/24/2024 6:40 PM CDT ECG 12-LEAD Routine 08/15/2024 9:22 AM CDT Dizziness XR KNEE LEFT 4 OR MORE VIEWS Schedule Routine, Read Routine (OP Routine) 08/08/2024 12:45 PM CDT Bilateral primary osteoarthritis of knee XR KNEE RIGHT 4 OR MORE VIEWS Schedule Routine, Read Routine (OP Routine) 08/08/2024 12:45 PM CDT Bilateral primary osteoarthritis of knee EGFR Routine 08/08/2024 12:28 PM CDT Lipid screening DIFFERENTIAL AUTO Routine 08/08/2024 12:28 PM CDT Lipid screening LIPID PANEL Routine 08/08/2024 12:28 PM CDT Lipid screening CBC WITH AUTO DIFFERENTIAL Routine 08/08/2024 12:28 PM CDT Lipid screening COMPREHENSIVE METABOLIC PANEL Routine 08/08/2024 12:28 PM CDT Lipid screening THYROID FUNCTION CASCADE Routine 08/08/2024 12:28 PM CDT Acquired hypothyroidism HEMOGLOBIN A1C Routine 08/08/2024 12:28 PM CDT Family history of diabetes mellitus (DM) HEPATITIS B SURFACE ANTIGEN Routine 08/08/2024 12:28 PM CDT Need for hepatitis B screening test HEPATITIS B CORE ANTIBODY, TOTAL Routine 08/08/2024 12:28 PM CDT Need for hepatitis B screening test HEPATITIS B SURFACE ANTIBODY (IMMUNE STATUS) Routine 08/08/2024 12:28 PM CDT Need for hepatitis B screening test HEPATITIS C ANTIBODY Routine 08/08/2024 12:28 PM CDT Encounter for hepatitis C screening test for low risk patient from Last 3 Months Results * XR Finger Thumb Right Minimum 2 Views (08/24/2024 6:40 PM CDT) Anatomical Region Laterality Modality Upper Extremities, Hand, Fingers Right Computed Radiography 08/24/2024 7:36 PM CDT Narrative 08/24/2024 8:03 PM CDT EXAM DESCRIPTION: XR FINGER THUMB RIGHT MINIMUM 2 VIEWS REASON FOR STUDY: Right thumb pain status post injury today TECHNIQUE: 3 radiographic view(s) of the right thumb . COMPARISON: None FINDINGS: BONES/JOINTS: There is no acute fracture, malalignment or osseous abnormality. The joint spaces are normal. SOFT TISSUES: Within normal limits. IMPRESSION: No acute osseous abnormality. THIS IS AN ELECTRONICALLY VERIFIED FINAL REPORT 08/24/2024 8:03 PM - Electronically signed by Jonas Gibbs M.D. KT: TAHIR Report ID: [id number] Reading Location: [id number] Procedure Note Jonas Gibbs MD - 08/24/2024 EXAM DESCRIPTION: XR FINGER THUMB RIGHT MINIMUM 2 VIEWS REASON FOR STUDY: Right thumb pain status post injury today TECHNIQUE: 3 radiographic view(s) of the right thumb . COMPARISON: None FINDINGS: BONES/JOINTS: There is no acute fracture, malalignment or osseousabnormality. The joint spaces are normal. SOFT TISSUES: Within normal limits. IMPRESSION: No acute osseous abnormality. THIS IS AN ELECTRONICALLY VERIFIED FINAL REPORT 08/24/2024 8:03 PM - Electronically signed by Jonas Gibbs M.D. KT: TAHIR Report ID: [id number] Reading Location: [id number] Geovanni SIMMS IMG XR PROCEDURES Final Resu lt * ECG 12-LEAD (08/15/2024 9:22 AM CDT) Narrative Ryne Miner MD - 08/15/2024 9:22 AM CDT Ryne Miner MD 08/22/2024 6:58 AM ECG 12 lead Date/Time: 08/15/2024 9:22 AM Performed by: Lory Sanabria NP Authorized by: Lory Sanabria NP Comparison: not compared with previous ECG Previous ECG: no previous ECG available Rhythm: sinus rhythm Rate: normal BPM: 60 QRS axis: normal Clinical impression: normal ECG Lory Sanabria METAL FINISH INSPECTOR ECG ORDERABLES Final Resul t * XR Knee Right 4+ Vw (08/08/2024 12:45 PM CDT) Anatomical Region Laterality Modality Lower Extremities, Knee Right Computed Radiography 08/09/2024 10:1 2 AM CDT Narrative 08/09/2024 10:15 AM CDT EXAM DESCRIPTION: XR KNEE RIGHT 4 OR MORE VIEWS; XR KNEE LEFT 4 OR MORE VIEWS REASON FOR STUDY: chronic bilateral knee pain Arthritis, left knee pain worse than right no surgery FINDINGS: Four views each knee submitted without comparison. No acute fracture. Moderate medial predominant bilateral knee osteoarthritis. No effusions. IMPRESSION: Moderate medial predominant bilateral knee osteoarthritis. THIS IS AN ELECTRONICALLY VERIFIED FINAL REPORT 08/09/2024 10:15 AM - Electronically signed by Jonathan Ahn M.D. MF: [email or web address] Report ID: [id number] Reading Location: [id number] Procedure Note Jonathan Ahn MD - 08/09/2024 EXAM DESCRIPTION: XR KNEE RIGHT 4 OR MORE VIEWS; XR KNEE LEFT 4 OR MORE VIEWS REASON FOR STUDY: chronic bilateral knee pain Arthritis, left knee pain worse than right no surgery FINDINGS: Four views each knee submitted without comparison. No acute fracture. Moderate medial predominant bilateral kneeosteoarthritis. No effusions. IMPRESSION: Moderate medial predominant bilateral knee osteoarthritis. THIS IS AN ELECTRONICALLY VERIFIED FINAL REPORT 08/09/2024 10:15 AM - Electronically signed by Jonathan Ahn M.D. MF: [email or web address] Report ID: [id number] Reading Location: [id number] us Jesus Stafford MD IMG XR PROCEDURES Final R esult * XR Knee Left 4+ Vw (08/08/2024 12:45 PM CDT) Anatomical Region Laterality Modality Lower Extremities, Knee Left Computed Radiography 08/09/2024 10:1 2 AM CDT Narrative 08/09/2024 10:15 AM CDT EXAM DESCRIPTION: XR KNEE RIGHT 4 OR MORE VIEWS; XR KNEE LEFT 4 OR MORE VIEWS REASON FOR STUDY: chronic bilateral knee pain Arthritis, left knee pain worse than right no surgery FINDINGS: Four views each knee submitted without comparison. No acute fracture. Moderate medial predominant bilateral knee osteoarthritis. No effusions. IMPRESSION: Moderate medial predominant bilateral knee osteoarthritis. THIS IS AN ELECTRONICALLY VERIFIED FINAL REPORT 08/09/2024 10:15 AM - Electronically signed by Jonathan Ahn M.D. MF: [email or web address] Report ID: [id number] Reading Location: [id number] Procedure Note Jonathan Ahn MD - 08/09/2024 EXAM DESCRIPTION: XR KNEE RIGHT 4 OR MORE VIEWS; XR KNEE LEFT 4 OR MORE VIEWS REASON FOR STUDY: chronic bilateral knee pain Arthritis, left knee pain worse than right no surgery FINDINGS: Four views each knee submitted without comparison. No acute fracture. Moderate medial predominant bilateral kneeosteoarthritis. No effusions. IMPRESSION: Moderate medial predominant bilateral knee osteoarthritis. THIS IS AN ELECTRONICALLY VERIFIED FINAL REPORT 08/09/2024 10:15 AM - Electronically signed by Jonathan Ahn M.D. MF: [email or web address] Report ID: [id number] Reading Location: [id number] us Jesus Stafford MD IMG XR PROCEDURES Final R esult * eGFR (08/08/2024 12:28 PM CDT) eGFR 69 >=60 mL/min/1. 73 m2 Comment: Interpretive Data Reference Interval Normal >/= 90 mL/min/1.73m2 Mildly decreased* 60 - 89 mL/min/1.73m2 Mildly to moderately decreased 45 - 59 mL/min/1.73m2 Moderately to severely decreased 30 - 44 mL/min/1.73m2 Severely decreased 15 - 29 mL/min/1.73m2 Kidney Failure < 15 mL/min/1.73m2 *Relative to young adult level Estimated glomerular filtration rate is determined by the 2020 CKD-EPI equation recommended by the National Kidney Foundation (A Unifying Approach to GFR Estimation: Recommendations of the NKF-ASK Task Force on Reassessing the Inclusion of Race in Diagnosing Kidney Disease, JASN 2020). The CKD-EPI equation should not be used for patients with unstable renal function and has not been validated in children and those over 70. Current interpretive data was last reviewed 2021. Blood 08/08/2024 12:2 8 PM CDT 08/08/2024 3:58 PM CDT us Jesus Stafford MD LAB BLOOD ORDERABLES Megha aguilar Result [facility]) 1 [facility] Department of [place] [address] * Differential, auto (08/08/2024 12:28 PM CDT) Neutrophil abs 4.12 1.50 - 6.50 K/cumm Imm gran abs 0.01 0.00 - 0.10 K/cumm [facility] ([place]) Lymphocyte abs 2.50 0.80 - 3.30 K/cumm [facility] ([place]) Monocyte abs 0.53 0.20 - 0.80 K/cumm [facility] ([place]) Eosinophil abs 0.12 0.00 - 0.50 K/cumm [facility] ([place]) Basophil abs 0.07 0.00 - 0.10 K/cumm [facility] ([place]) Neutrophil pct 56.1 % [facility] ([place]) Comment: Interpretive Data Percent cell count reference ranges are not reported, since discordance with absolute values may lead to misinterpretation of CBC data. Current Interpretive Data was last revised on 2017. Imm gran pct 0.1 % [facility] ([place]) Comment: Interpretive Data Percent cell count reference ranges are not reported, since discordance with absolute values may lead to misinterpretation of CBC data. Current Interpretive Data was last revised on 2017. Lymphocyte pct 34.0 % [facility] ([place]) Comment: Interpretive Data Percent cell count reference ranges are not reported, since discordance with absolute values may lead to misinterpretation of CBC data. Current Interpretive Data was last revised on 2017. Monocyte pct 7.2 % [facility] ([place]) Comment: Interpretive Data Percent cell count reference ranges are not reported, since discordance with absolute values may lead to misinterpretation of CBC data. Current Interpretive Data was last revised on 2017. Eosinophil pct 1.6 % [facility] ([place]) Comment: Interpretive Data Percent cell count reference ranges are not reported, since discordance with absolute values may lead to misinterpretation of CBC data. Current Interpretive Data was last revised on 2017. Basophil pct 1.0 % [facility] ([place]) Comment: Interpretive Data Percent cell count reference ranges are not reported, since discordance with absolute values may lead to misinterpretation of CBC data. Current Interpretive Data was last revised on 2017. Blood 08/08/2024 12:2 8 PM CDT 08/08/2024 3:58 PM CDT us Jesus Stafford MD LAB BLOOD ORDERABLES Megha aguilar Result [facility] ([place]) 1 [facility] Department of [place] [address] * Thyroid Function [place] (08/08/2024 12:28 PM CDT) TSH 1.10 0.30 - 4.20 mcIUnit/mL Blood 08/08/2024 12:2 8 PM CDT 08/08/2024 3:58 PM CDT us Jesus Stafford MD LAB BLOOD ORDERABLES Megha l Result [facility] ([place]) 1 [facility] [place] [address] * (ABNORMAL) CBC with auto differential (08/08/2024 12:28 PM CDT) Pathologist [facility] WBC 7.35 3.80 - 9.90 K/cumm Hgb 13.2 11.9 - 15.5 g/dL [facility] ([place]) Hct 38.7 35.6 - 45.5 % [facility]) Plt 210 150 - 400 K/cumm [facility] ([place]) MPV 13.0(H) 9.1 - 12.3 fL [facility] ([place]) RBC 4.32 3.90 - 5.20 M/cumm [facility] ([place]) MCV 89.6 81.3 - 96.4 fL [facility] ([place]) MCH 30.6 27.1 - 33.3 pg [facility] ([place]) MCHC 34.1 32.3 - 35.7 g/dL [facility] ([place]) RDW CV 13.8 11.1 - 14.9 % [facility]) RDW SD 44.9 35.7 - 48.1 fL [facility] ([place]) NRBC abs 0.00 0.00 - 0.01 K/cumm [facility] ([place]) Blood 08/08/2024 12:2 8 PM CDT 08/08/2024 3:58 PM CDT us Jesus Stafford MD LAB BLOOD ORDERABLES Megha l Result [facility] ([place]) 1 [facility] [place] [address] * Hepatitis C antibody Blood (08/08/2024 12:28 PM CDT) Pathologist [facility] Hep C Ab Nonreactive Nonreactive Comment: Interpretive Data Nonreactive: Antibodies to HCV not detected. Does NOT exclude the possibility of recent exposure to HCV. Equivocal: Equivocal for HCV antibodies. Supplemental molecular testing will be automatically performed to determine infection status in accordance with current CDC screening recommendations. Reactive: Positive for HCV antibodies. This may represent current or past HCV infection. Supplemental molecular testing will be automatically performed to determine current infection status in accordance with current CDC screening recommendations. Interpretive data was last revised on 2019. Testing performed by: [facility], [address] [place] [address]., [id number] Blood 08/08/2024 12:2 8 PM CDT 08/08/2024 5:55 PM CDT Jesus Stafford MD LAB MICROBIOLOGY - [employer] L ORDERABLES Final Result Performing Organization Address City/[facility]/ZIP Co de Phone Number [facility] ([place]) 1 [place] [address] * Hepatitis B core antibody, total Blood (08/08/2024 12:28 PM CDT) Pathologist [facility] Hep B core IgG/IgM Nonreactive Nonreactive Comment:Testing performed by : [facility], [address] [place] [address], [id number] Blood 08/08/2024 12:2 8 PM CDT 08/08/2024 5:56 PM CDT Jesus Stafford MD LAB MICROBIOLOGY - GENERA L ORDERABLES Final Result [facility] ([place]) 1 [place] [address] * Hepatitis B surface antibody (immune status) Blood (08/08/2024 12:28 PM CDT) Pathologist [facility] HBsAb (immune status) Nonreactive Comment: Interpretive Data Nonreactive: This result is consistent with a lack of immunity to Hepatitis B Virus when used in the setting of routine screening. Equivocal: The immune status of the individual should be further assessed, if appropriate, after consideration of clinical status, risk factors, and additional diagnostic information. Reactive: This result is consistent with immunity to Hepatitis B Virus when used in the setting of routine screening. Current interpretive data was last revised on 19. Testing performed by: [facility], [address] [place] [address]., [id number] Blood 08/08/2024 12:2 8 PM CDT 08/08/2024 5:55 PM CDT Jesus Stafford MD LAB MICROBIOLOGY - GENERA L ORDERABLES Final Result Performing Organization Address City/[facility]/ZIP Co de Phone Number [facility] ([place]) 1 [facility] [place] [place] [address] * Hepatitis B Surface Antigen Blood (08/08/2024 12:28 PM CDT) Pathologist [facility] HepBsAg Nonreactive Nonreactive Comment:Testing performed by : [facility], [address] [place] [address]., [id number] Blood 08/08/2024 12:2 8 PM CDT 08/08/2024 5:55 PM CDT Jesus Stafford MD LAB MICROBIOLOGY - GENERA L ORDERABLES Final Result [facility] ([place]) [address] [place] [address] [place] [address] * Hemoglobin A1c (08/08/2024 12:28 PM CDT) Pathologist [facility] Hgb A1C 5.1 4.0 - 5.6 % Estimated Average Glucose 100 mg/dL [facility] ([place]) Comment: The ADA recommends reporting an estimated Average Glucose (eAG) with all Hemoglobin A1c results using the equation derived from a study of 507 normal and diabetic adults. Minority populations were underrepresented and children were not included. (Diabetes Care 31:2939-4117, 2008). The eAG is not equivalent to a fasting glucose. Blood 08/08/2024 12:2 8 PM CDT 08/08/2024 3:58 PM CDT us Jesus Stafford MD LAB BLOOD ORDERABLES Megha aguilar Result [facility] ([place]) 1 [facility] Department of [place] [address] * (ABNORMAL) Lipid panel (08/08/2024 12:28 PM CDT) Cholesterol 207(H) 30 - 199 mg/dL Comment: Interpretive Data Ages < or = 19 years Acceptable: <170 mg/dL Borderline high: 170-199 mg/dL High: >or= 200 mg/dL Ages > or = 20 years Desirable: <200 mg/dL Borderline high: 200-239 mg/dL High: >or= 240 mg/dL Literature References: 1. Expert Panel on Integrated Guidelines for Cardiovascular Health and Risk Reduction in Children and Adolescents. Pediatrics 2011;128:S213 2. NCEP Expert Panel. Circulation 2004;110:227 Current Interpretive Data was last revised on 2017. Triglycerides 90 <=149 mg/dL RITU MENDOZA (SARAH) Comment: Interpretive Data Ages < or = 9 years Acceptable: <75 mg/dL Borderline high: 75-99 mg/dL High: >or= 100 mg/dL Ages 10 to 20 years Acceptable: <90 mg/dL Borderline high: 90-129 mg/dL High: >or= 130 mg/dL Ages > or = 20 years Desirable: <150 mg/dL Borderline high: 150-199 mg/dL High: 200-499 mg/dL Very high: >or= 499 mg/dL Literature References: 1. Expert Panel on Integrated Guidelines for Cardiovascular Health and Risk Reduction in Children and Adolescents. Pediatrics 2011;128:S213 2. NCEP Expert Panel. Circulation 2004;110:227 Current Interpretive Data was last revised on 2017. HDL 45 >=40 mg/dL RITU MENDOZA (SARAH) Comment: Interpretive Data Ages < or = 19 years Acceptable: >45 mg/dL Borderline low: 40-45 mg/dL Low: <40 mg/dL Ages > or = 20 years Desirable: >or= 60 mg/dL Low: <40 mg/dL Literature References: 1. Expert Panel on Integrated Guidelines for Cardiovascular Health and Risk Reduction in Children and Adolescents. Pediatrics 2011;128:S213 2. NCEP Expert Panel. Circulation 2004;110:227 Current Interpretive Data was last revised on 2017. LDL, calculated 146(H) <=129 mg/dL RITU MENDOZA (SARAH) Comment: Interpretive Data Ages < or = 19 years Acceptable: <110 mg/dL Borderline high: 110-129 mg/dL High: >or= 130 mg/dL Ages > or = 20 years Optimal: <100 mg/dL Near optimal: 100-129 mg/dL Borderline high: 130-159 mg/dL High: >160 mg/dL Calculated using the Yury LDL-C estimating equation. This equation was implemented on 2023. Prior to this date LDL-C was estimated using the Friedewald equation. Literature References: 1. Expert Panel on Integrated Guidelines for Cardiovascular Health and Risk Reduction in Children and Adolescents. Pediatrics 2011;128:S213 2. NCEP Expert Panel. Circulation 2004;110:227 3. Yury M et al. QING Cardiol. 2019July 24;5(5):540-548. doi: 10.1001/jamacardio.2020.0013 Current Interpretive Data was last revised on 2023. Non-HDL Cholesterol 162 mg/dL RITU MENDOZA (SARAH) Comment: Interpretive Data Ages < or = 19 years Acceptable: <120 mg/dL Borderline high: 120-144 mg/dL High: >145 mg/dL Ages > or = 20 years When triglycerides are >200 mg/dL, Non-HDL cholesterol is a secondary target of therapy with treatment goals that are 30 mg/dL greater than the LDL cholesterol target. Literature References: 1. Expert Panel on Integrated Guidelines for Cardiovascular Health and Risk Reduction in Children and Adolescents. Pediatrics 2011;128:S213 2. NCEP Expert Panel. Circulation 2004;110:227 Current Interpretive Data was last revised on 2017. Chol/HDL ratio 5 NADIRA MENDOZA (SARAH) Blood 08/08/2024 12:2 8 PM CDT 08/08/2024 3:58 PM CDT us Jesus Stafford MD LAB BLOOD ORDERABLES Megha aguilar Result [facility] ([facility]) 1 [facility] Department of [place] [address] * Comprehensive metabolic panel (08/08/2024 12:28 PM CDT) Sodium 137 135 - 145 mmol/L Potassium, pl 4.1 3.3 - 4.9 mmol/L [facility] ([facility]) Chloride 100 97 - 110 mmol/L [facility] ([place]) CO2 25 22 - 32 mmol/L [facility] ([place]) Anion gap 12 2 - 15 mmol/L [facility] ([place]) BUN 17 6 - 25 mg/dL [facility] ([facility]) Creatinine 0.92 0.60 - 1.10 mg/dL [facility] ([place]) Glucose 79 70 - 199 mg/dL [facility] ([facility]) Comment: Interpretive Data Fasting glucose >/= 126 mg/dl is diagnostic for diabetes. Fasting is defined as no caloric intake for at least 8 hours. Fasting glucose between 100 mg/dl to 125 mg/dl is diagnostic of prediabetes. In a patient with classic symptoms of hyperglycemia or hyperglycemic crisis, a random glucose >/= 200 mg/dl is diagnostic for diabetes. In the absence of unequivocal hyperglycemia, results should be confirmed by repeat testing. The classification and Diagnosis of Diabetes Diabetes Care 2021; 46: S19-S40. Current interpretive data was last revised 2022. Calcium 9.2 8.5 - 10.3 mg/dL [facility] ([facility]) Bilirubin, total 0.5 0.1 - 1.2 mg/dL [facility] ([place]) Protein, pl 7.4 6.5 - 8.5 g/dL [facility] ([place]) Albumin 4.2 3.5 - 5.0 g/dL [facility] ([facility]) Alk phos 88 40 - 130 Units/L [facility] ([place]) ALT 18 7 - 45 Units/L [facility] ([place]) AST 24 10 - 45 Units/L [facility] ([facility]) Comment:Slightly Hemolyzed S pecimen Blood 08/08/2024 12:2 8 PM CDT 08/08/2024 3:58 PM CDT us Jesus Stafford MD LAB BLOOD ORDERABLES Megha lauren Result [facility] ([place]) 1 [facility] Department of [place] [address] from Last 3 Months Insurance [place] [facility] MEDICARE ADVANTAGE [facility] MED[facility] Address: [address] [address] [place] [address] Advance Directives For more information, please contact: [phone] Documents on File Type Date Recorded Patient Rubber Press Tender Expl anation ADVANCE DIRECTIVE 08/29/2024 2:07 PM Power of Handyperson-Medical ADVANCE DIRECTIVE 08/29/2024 2:06 PM DNR Care Teams Brusher Machine Relationship Specialty Start Date [place] [address] PCP - General Family Medicine 08/06/24 Harsha Bey DO Internal Medicine 01/07/22
--- OUTSIDE RECORDS SUMMARY | 2024-10-22 15:00 | XMS_ITS | Clinical Summary ---
Author Organization [facility] [address] [facility] Address [address] [facility] [address] Care Team Providers Care Correctional Therapy Director Name Role Phone Harsha Bey DO Unavailable [phone] Jesus Stafford MD Primary Care Provider [phone] Allergies Active Allergy Reactions Criticality Noted Date Comments Hymenoptera Allergenic Extract Hives High 07/18/2018 Apremilast Diarrhea Low 08/06/2024 Penicillins Rash,Hives,Urticaria High 07/28/2008 Penicillins Hives Medium 01/07/2022 Pfynmpn-Rsx-Wes Reductase Inhibitors Seizures,Other (See comments) High 07/17/2017 Possible seizure Venom-Honey Bee Swelling Medium 06/20/2016 Medications MULTIVITAMIN ORAL Take by mouth daily Active cholecalciferol (VITAMIN D-3) 2000 unit tablet Take by mouth daily OTC Active levothyroxine (SYNTHROID) 75 mcg tablet Take 1 tablet (75 mcg total) 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 Active citalopram (CeleXA) 20 mg [...] 06/20/2016 Headache(784.0) 06/20/2016 Never smoked tobacco 12/05/2011 Encounters Date Type Department Care Team Description 10/16/2024 Telephone [facility] [address] [phone] Jesus Stafford MD Call Back 08/29/2024 1:45 PM CDT Office Visit [facility] Primary Care at [address] [place] [phone] Jesus Stafford MD Laceration of right thumb without foreign body with damage to nail, subsequent encounter (Primary Dx); Breast cancer screening by mammogram; Post-menopausal; Colon cancer screening 08/27/2024 [facility] Accountable Care [address] [address] Jacquelin Stephenson MA 08/26/2024 [facility] [address] [address] Jacquelin Stephenson MA 08/24/2024 6:54 PM CDT - 08/24/2024 8:36 PM CDT Emergency [facility] Emergency Department [address] [place] [address] Laceration of right thumb with damage to nail (Primary Dx) Discharge Disposition: Discharge to home or self care 08/15/2024 7:30 AM CDT Office Visit [facility] [address] [phone] Lory Sanabria NP Dizziness (Primary Dx); Hypertension, essential; BMI 28.0-28.9,adult 08/15/2024 Telephone [facility] [address] [phone] Jesus Stafford MD Medication Request 08/14/2024 Nurse Triage [facility] [place] [address] [place] [phone] Jesus Stafford MD 08/11/2024 Results Follow-Up [facility] Primary Care at [address] [place] [phone] Jesus Stafford MD XR Knee Right 4+ Vw, Hemoglobin A1c, Thyroid Function [place], Additional followed-up results: 9 08/08/2024 12:25 PM CDT Lab [address] [phone] Family history of diabetes mellitus (DM); Acquired hypothyroidism; Encounter for hepatitis C screening test for low risk patient; Need for hepatitis B screening test; Lipid screening 08/08/2024 12:23 PM CDT - 08/08/2024 11:59 PM CDT Hospital Encounter [facility] [address] [place] [address] Bilateral primary osteoarthritis of knee Discharge Disposition: Discharge to home or self care 08/06/2024 4:00 PM CDT Office Visit [facility] [place] [address] [place] [phone] Jesus Stafford MD Medicare annual wellness visit, [...] Other social stressor from Last 3 Months Immunizations Immunization Administration Dates Next Due Influenza, Quadrivalent, Doris l Culture-based MDCK, Preservative Free, Antibiotic Free, Intramuscular 12/16/2018,12/04/2016 Influenza, Quadrivalent, Spl it, Preservative Free, Intramuscular 01/02/2018,12/06/2015 Influenza, Trivalent, IM (MDV) 01/19/2015 Tdap 01/07/2022 ZOSTER Recombinant 05/15/2019,12/16/2018 Surgical History Surgery Date Site/Laterality Comments BREAST RECONSTRUCTION 03/26/2017 - 03/25/2018 Breast Reconstruction With Implant Prosthesis -Removal MO HYSTEROSCOPY BX ENDOMETRIUM&/POLYPC W/WO D&C Hysteroscopy - (Added by TW Conv) MO CHOLECYSTECTOMY Cholecystectomy - (Added by TW Conv) MO NJX AA&/STRD TFRML EPI LUMBAR/SACRAL 1 LEVEL Corticosteroid Inj Transforaminal Approach Lumbar W/ Fluoroscopic Guidance - (Added by TW Conv) BACK SURGERY Lower Back Surgery - (Added by TW Conv) HYSTERECTOMY 03/26/1990 - 03/25/1991 CHOLECYSTECTOMY 03/26/2004 - 03/25/2005 BACK SURGERY 03/26/2014 - 03/25/2015 N/A BILE DUCT STENT PLACEMENT 03/26/2005 - 03/25/2006 Medical History Medical History Date Comments Hypothyroidism Lumbar radiculopathy, chronic Chronic pain Anxiety Depression Gastric reflux Disc disorder of lumbar region Osteoarthritis Osteoporosis Hypertension Arthritis Psoriasis Family History Medical History Relation Name Comments Hypertension Brother Stroke Brother Cancer Father Angiosarcoma Cancer Maternal Grandfather Cancer Maternal Grandmother Diabetes Mother Family history of diabetes mellitus - (Added by TW Conv) Heart disease Mother Hypertension Mother Family history of hypertension - (Added by TW Conv) Parkinsonism Mother Stroke Mother Family history of cerebrovascular accident (CVA) - (Added by TW Conv) Arthritis Sister Relation Name Status Comments Brother Father Maternal Grandfather Maternal Grandmother Mother Sister Social History Tobacco Use Types Packs/Day Years [...] on file Legal Sex Female 11:32 PM NOTEMAN Gender Identity Not on file Sexual Orientation Not on file Obstetrics History Last Filed Vital Signs Vital Sign Reading [...] Scheduled Procedures Name Priority Associated Diagnoses Date/Ti me LIFT - FACE Encounter for cosmetic surgery ENDOSCOPIC BROWLIFT Encounter for cosmetic surgery Health Maintenance Due Date Last Done Comments Breast Cancer Screening-Mammogram 1960 Colon Cancer Screening-Colonoscopy 1960 Osteoporosis Screening-Bone Density Scan 1960 Pneumococcal vaccine 65+ (1 of 1 - PCV) 02/15/2008 Covid-19 Vaccine (2023-2 5 season) 2023 06/16/2020, 05/25/2020 Influenza Vaccine (#1) 2024 9, 01/02/2018, 12/04/2016, Additional history exists Well Visit 65+ 08/06/2025 08/06/2024 Depression Screening 08/15/2025 08/15/2024, 08/07/19 25 Fall Risk Assessment 08/15/2025 08/15/2024, 08/07/19 25 DTaP/Tdap/Td Vaccine (2 - Td or Tdap) 01/08/2032 01/07/2022 Zoster Vaccine Completed 05/15/2019, 12/16/2018 Hepatitis B Screening Completed 08/08/2024 Hepatitis C Screening Completed 08/08/2024 Goals Goal Patient Goal Type Associated Problems [...] as needed Medical Devices Implanted Type Area Manager Play Device Identifier Shelf Expiration Date Model / [...] Electronically signed by Jonas Gibbs M.D. KT: KT Report ID: [id number] Reading Location: [id number] Procedure Note Jonas Gibbs MD - 08/24/2024 [...] Electronically signed by Jonas Gibbs M.D. KT: KT Report ID: [id number] Reading Location: [id number] us Geovanni SIMMS IMG XR PROCEDURES Final Resu [...] normal Clinical impression: normal ECG Lory Sanabria NP ECG ORDERABLES Final Resul t * XR [...] Jonathan Ahn M.D. MF: JACKELIN Report ID: [id number] Reading Location: [id number] Procedure Note Jonathan Ahn MD - 08/09/2024 [...] Jonathan Ahn M.D. MF: JACKELIN Report ID: [id number] Reading Location: [id number] us Jesus Stafford MD IMG XR PROCEDURES [...] Jonathan Ahn M.D. MF: JACKELIN Report ID: [id number] Reading Location: [id number] Procedure Note Jonathan Ahn MD - 08/09/2024 [...] Jonathan Ahn M.D. MF: JACKELIN Report ID: [id number] Reading Location: [id number] Jesus Stafford MD IMG XR PROCEDURES Final [...] LAB BLOOD ORDERABLES Megha l Result [facility] ([place]) 1 [facility] [place] [address] * Differential, auto (08/08/2024 12:28 PM CDT) Neutrophil abs 4.12 1.50 - 6.50 K/cumm Imm gran abs 0.01 0.00 - 0.10 K/cumm RITU MENDO[facility] ([place]) Lymphocyte abs 2.50 0.80 - 3.30 K/cumm [facility] ([facility]) Monocyte abs 0.53 0.20 - 0.80 K/cumm [facility] ([facility]) Eosinophil abs 0.12 0.00 - 0.50 K/cumm [facility] ([facility]) Basophil abs 0.07 0.00 - 0.10 K/cumm [...] MD LAB BLOOD ORDERABLES Megha aguilar Result [facility] ([place]) 1 [facility] [place] [address] * Thyroid Function [place] (08/08/2024 12:28 PM CDT) [facility] TSH 1.10 0.30 - 4.20 mcIUnit/mL Blood 08/08/2024 12:2 8 PM CDT 08/08/2024 3:58 PM CDT us Jesus Stafford MD LAB BLOOD ORDERABLES Megha l Result RITU MENDOZA ([place]AH) 1 [facility] [place] [address] * (ABNORMAL) CBC with auto differential (08/08/2024 12:28 PM CDT) [facility] WBC 7.35 3.80 - 9.90 K/cumm Hgb [...] LAB BLOOD ORDERABLES Megha l Result RITU MENDO[facility] (SARAH) 1 [facility] [place] [address] * Hepatitis C antibody Blood (08/08/2024 12:28 PM CDT) Hep C Ab Nonreactive Nonreactive Comment: Interpretive [...] last revised on 2019. Testing performed by: [facility], [address] [place] [address]., [id number] Blood 08/08/2024 12:2 8 PM CDT 08/08/2024 5:55 PM CDT Jesus Stafford MD LAB MICROBIOLOGY - GENERA L ORDERABLES Final Result Performing Organization Address [facility] Co de Phone Number R[facility]U MENDO[facility] ([place]) [address] [place] [address] [place] [address] * Hepatitis B core antibody, total Blood (08/08/2024 12:28 PM CDT) Hep B core IgG/IgM Nonreactive Nonreactive Comment:Testing performed by : [facility], [address] [place] [address], [place]., [address] Blood 08/08/2024 12:2 8 PM CDT 08/08/2024 5:56 PM CDT Jesus Stafford MD LAB MICROBIOLOGY - GENERA L ORDERABLES Final Result [facility]U MENDO[facility] ([place]AH) 1 [facility] [place] [address] * Hepatitis B surface antibody (immune status) Blood (08/08/2024 12:28 PM CDT) [facility] HBsAb (immune status) Nonreactive Comment: Interpretive Data [...] last revised on 19. Testing performed by: [facility], [address] [place] [address]., [id number] Blood 08/08/2024 12:2 8 PM CDT 08/08/2024 5:55 PM CDT Jesus Stafford MD LAB MICROBIOLOGY - GENERA L ORDERABLES Final Result Performing Organization Address City/[facility]/ZIP Co de Phone Number R[facility]U M[facility] ([place]) 1 [facility] [place] [address] * Hepatitis B Surface Antigen Blood (08/08/2024 12:28 PM CDT) [facility] HepBsAg Nonreactive Nonreactive Comment:Testing performed by : [facility], [address] [place] [address]., [id number] Blood 08/08/2024 12:2 8 PM CDT 08/08/2024 5:55 PM CDT Jesus Stafford MD LAB MICROBIOLOGY - GENERA L ORDERABLES Final Result [facility] ([place]) 1 [facility] [place] [address] * Hemoglobin A1c (08/08/2024 12:28 PM CDT) [facility] Hgb A1C 5.1 4.0 - 5.6 % Estimated Average Glucose 100 mg/dL [facility]U MENDO[facility] ([place]AH) Comment: The ADA recommends reporting an estimated Average Glucose (eAG) with all Hemoglobin A1c results using the equation derived from a study of 507 normal and diabetic adults. Minority populations were underrepresented and children were not included. (Diabetes Care 31:3157-3707, 2008). The eAG is not equivalent to a fasting glucose. Blood 08/08/2024 12:2 8 PM CDT 08/08/2024 3:58 PM CDT us Jesus Stafford MD LAB BLOOD ORDERABLES Megha aguilar Result [facility]U [facility] ([place]) 1 [facility] Department [place] [address] * (ABNORMAL) Lipid panel (08/08/2024 12:28 PM [...] NCEP Expert Panel. Circulation 2004;110:227 3. Yury Perdue et al. QING Cardiol. 2020 July 24;5(5):540-548. doi: 10.1001/jamacardio.2020.0013 Current Interpretive Data was [...] last revised on 2017. Chol/HDL ratio 5 [facility] ([place]) Blood 08/08/2024 12:2 8 PM CDT 08/08/2024 3:58 PM CDT us Jesus Stafford MD LAB BLOOD ORDERABLES Megha lauren Result [facility] ([place]) 1 [facility] [place] [address] * Comprehensive metabolic panel (08/08/2024 12:28 PM [...] classification and Diagnosis of Diabetes Diabetes Care 202; 46: S19-S40. Current interpretive data was last [...] 8 PM CDT 08/08/2024 3:58 PM CDT Jesus Stafford MD LAB BLOOD ORDERABLES Megha aguilar Result [facility] ([place]) 1 [facility] [place] [address] from Last 3 Months Insurance [place] Member Subscriber Plan / Payer (Ef fective 2020-Present) Name:Bethanie Dickey Relation to Subscriber:Self Name:Bethanie Dickey Payer ID:[id number] (NAIC) Type:HEALTHCARE/EXCHANGE Address: [address] [place] [employer] MEDICARE ADVANTAGE Advance Directives For more information, please contact: [phone] Documents on File Type Date Recorded Patient Nursery Hand Expl anation ADVANCE DIRECTIVE 08/29/2024 2:07 PM Power of Jd Edwards Consultant-Medical ADVANCE DIRECTIVE 08/29/2024 2:06 PM DNR Care Teams Correctional Therapy Director Relationship Specialty Start Date [place] [address] PCP - General Family Medicine 08/06/24 Harsha Bey DO Internal Medicine 01/07/22
== END 2024-10-22 14:56 | disposition home or self-care (01) ==
LOC: ANHIMG 14:57
PROVIDERS: PCP Clinical Nurse Specialist; Visit Provider Clinical Nurse Specialist
DX: Z12.31 Encounter for screening mammogram for malignant neoplasm of breast (principal); M85.89 Other specified disorders of bone density and structure, multiple sites; Z78.0 Asymptomatic menopausal state
CPT/HCPCS: 77063; 77067; 77080